=== PATIENT | female | born 2000 | race Caucasian/White ===

== ENCOUNTER 2018-12-24 14:27 | Inpatient (IN) | payer MEDICAID, OTHER ==
[2018-12-24] MEDS ORDERED: Sodium Chloride 0.9% 1,000 ML IV STA (15:22)
--- NOTE | 2018-12-24 15:25 | ED PDOC ---
Arrival/HPI - General Historian: Patient - History of Present Illness Narrative History of Present Illness (Text): 12/24/18 15:22 18 y/o female, pmh including pylonephritis, nkda, c/o dysuria and low back pain x 1.5 weeks with no fall or trauma. Dysuria with low back pain, noted to have fever yesterday, no pelvic or vaginal pain, no vaginal bleeding or discharge, no abdominal pain, no headache or night sweat, no rash, no numbness or tingling, no palpitation, no other medical or psychological complaints. <Rudolph Simpson - Last Filed: 12/24/18 19:48> <Iona Beth PA-C - Last Filed: 12/24/18 22:00> - General Chief Complaint: Back Pain Past Medical History - Provider Review Nursing Documentation Reviewed: Yes - Infectious Disease Hx of Infectious Diseases: None - Tetanus Immunization Tetanus Immunization: Up to Date - Reproductive Menopause: No - Past Medical History Past Medical History: No Previous - Cardiac Hx Cardiac Disorders: No - Neurological Hx Meningitis: Yes - Renal Hx Pyelonephritis: Yes Hx Renal Failure: No - Musculoskeletal/Rheumatological Hx Falls: No - Genitourinary/Gynecological Hx Urinary Tract Infection: Yes - Psychiatric Hx Depression: No Hx Emotional Abuse: No Hx Physical Abuse: No Hx Substance Use: No - Surgical History Hx Tonsillectomy: Yes Other/Comment: adenoid - Anesthesia Hx Anesthesia Reactions: No Hx Malignant Hyperthermia: No - Suicidal Assessment Feels Threatened In Home Enviroment: No <Rudolph Simpson - Last Filed: 12/24/18 19:48> Family/Social History - Physician Review Nursing Documentation Reviewed: Yes Family/Social History: Unknown Family HX Smoking Status: Never Smoked Hx Alcohol Use: No Hx Substance Use: No Hx Substance Use Treatment: No <Rudolph Simpson - Last Filed: 12/24/18 19:48> Allergies/Home Meds <Rudolph Simpson - Last Filed: 12/24/18 19:48> <Inoa Beth PA-C - Last Filed: 12/24/18 22:00> Allergies/Adverse Reactions: Allergies No Known Allergies Allergy (Verified 10/22/14 17:34) Home Medications: Home Meds Medication Instructions Recorded Confirmed Maureen 180 mg PO DAILY 05/21/16 05/21/16 Flonase 1 NS DAILY 05/21/16 Review of Systems - Review of Systems Constitutional: absent: Fatigue, Fevers Eyes: absent: Vision Changes ENT: absent: Hearing Changes Respiratory: absent: SOB, Cough Cardiovascular: absent: Chest Pain Gastrointestinal: absent: Abdominal Pain, Nausea, Vomiting Genitourinary Female: Dysuria Musculoskeletal: Back Pain. absent: Arthralgias Skin: absent: Rash, Pruritis Psychiatric: absent: Anxiety, Depression, Suicidal Ideation <Rudolph Simpson Q - Last Filed: 12/24/18 19:48> Physical Exam Vital Signs Reviewed: Yes Vital Signs Temp Pulse Resp BP Pulse Ox 12/24/18 15:15 100.2 F H 102 H 18 140/86 98 Temperature: Febrile Blood Pressure: Normal Pulse: Tachycardic Respiratory Rate: Normal Appearance: Positive for: Well-Appearing, Non-Toxic, Comfortable Pain Distress: Moderate Mental Status: Positive for: Alert and Oriented X 3 - Systems Exam Head: Present: Atraumatic, Normocephalic Pupils: Present: PERRL Extroacular Muscles: Present: EOMI Conjunctiva: Present: Normal Mouth: Present: Moist Mucous Membranes Neck: Present: Normal Range of Motion Respiratory/Chest: Present: Clear to Auscultation, Good Air Exchange. No: Respiratory Distress, Accessory Muscle Use Cardiovascular: Present: Regular Rate and Rhythm, Normal S1, S2. 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 ). No: Vaginal Discharge, Vaginal Bleeding, Vaginal Lesions, Adenexal Tenderness, Adenexal Mass, Cervical Motion Tendernes, Odor Back: Present: Normal Inspection, CVA Tenderness. No: Midline Tenderness, Paraspinal Tenderness, Pain with Leg Raise, Decubitus Ulcer Upper Extremity: Present: Normal Inspection. No: Cyanosis, Edema Lower Extremity: Present: Normal Inspection. No: Edema Neurological: Present: GCS=15, CN II-XII Intact, Speech Normal Skin: Present: Warm, Dry, Normal Color. No: Rashes Psychiatric: Present: Alert, Oriented x 3, Normal Insight, Normal Concentration <Rudolph Simpson Q - Last Filed: 12/24/18 19:48> Vital Signs Temp Pulse Resp BP Pulse Ox 12/24/18 18:51 90 16 125/63 98 12/24/18 17:31 97.8 F 101 H 16 124/58 L 99 12/24/18 16:16 100.2 F H 12/24/18 15:15 100.2 F H 102 H 18 140/86 98 <Iona Beth PA-C - Last Filed: 12/24/18 22:00> Medical Decision Making ED Course and Treatment: 12/24/18 15:26 -labs -CT abdomen and pelvis -Chest xray -IVF/tylenol -observe and reassess 12/24/18 18:42 -urine hcg is negative -CT abdomen and pelvis Contrast-enhancing characteristics left kidney consistent with acute pyelonephritis. Similar findings identified on the prior CT scan 05/20/2016. Enlarged right adnexa. Differential considerations provided in the commentary. Pelvic ultrasound may be beneficial if clinically indicated. -Chest xray: No active disease. -Labs show no acute findings except wbc 18.8 -Rapid flu is negative -UA show +UTI, IV rocephine ordered -Azithromycin/flagyl ordered since we holding on for the sonogram. -Sonogram ordered for her for further evaluation. -Pt. will need admission for IV antibiotics. -Case discussed with Dr. Jaskaran Alvarez, he agreed on the diagnosis/treatment and admission plan. 12/24/18 19:48 -Pt. didn't get the sonogram yet, pending sonogram result and she would need admission for IV antibiotic 12/24/18 19:51 -Discussed with the patient and she agreed to be admitted. Pt. stated that she has no pelvic/vaginal discharge or pain. -Case discussed and endorsed to the incoming VANNESA Beth to follow up the sonogram and admission for IV antibiotic. - RAD Interpretation Radiology Orders: Date of service: 12/24/2018 HISTORY: medical clearance COMPARISON: No prior. FINDINGS: LUNGS: No active pulmonary disease. PLEURA: No significant pleural effusion identified, no pneumothorax apparent. CARDIOVASCULAR: No aortic atherosclerotic calcification present. Normal cardiac size. No pulmonary vascular congestion. OSSEOUS STRUCTURES: No significant abnormalities. VISUALIZED UPPER ABDOMEN: Normal. OTHER FINDINGS: None. IMPRESSION: No active disease. CT abdomen pelvis: Date of service: 12/24/2018 PROCEDURE: CT Abdomen and Pelvis with contrast HISTORY: flank pain, UTI, pylo? Negative test (concurrent with this examination). COMPARISON: 05/20/2016. CT abdomen and pelvis. Summary of findings on the comparison examination: Findings consistent with clinically suspected pyelonephritis affecting the left kidney only. TECHNIQUE: Intravenous contrast dose: 96 cc Omnipaque 350. Radiation dose: Total exam DLP = 687.07 mGy-cm. This CT exam was performed using one or more of the following dose reduction techniques: Automated exposure control, adjustment of the mA and/or kV according to patient size, and/or use of iterative reconstruction technique. FINDINGS: LOWER THORAX: Unremarkable. LIVER: Unremarkable. No gross lesion or ductal dilatation. GALLBLADDER AND BILE DUCTS: Unremarkable. PANCREAS: Unremarkable. No gross lesion or ductal dilatation. SPLEEN: Unremarkable. ADRENALS: Unremarkable. No mass. KIDNEYS AND URETERS: Left kidney: Abnormal contrast-enhancing characteristics particularly in the upper pole and to lesser extent lower pole consistent with clinically suspected pyelonephritis. Right kidney and ureter: Unremarkable. No hydronephrosis. No solid mass. VASCULATURE: Unremarkable. No aortic aneurysm. No atherosclerotic calcification or mural plaque present. BOWEL: Unremarkable. No obstruction. No gross mural thickening. APPENDIX: Normal appendix. PERITONEUM: Trace free fluid identified in the pelvis/cul de sac. No free air. LYMPH NODES: Unremarkable. No enlarged lymph nodes. BLADDER: Unremarkable. REPRODUCTIVE: Enlarged right adnexa measuring 3.7 x 6 cm. The findings likely represent cysts in the left ovary. Less likely considerations would include right hydrosalpinx. Deformed cyst with enhancement of the wall on the right likely recently ruptured cyst. Simple cyst left hemipelvis 2.4 x 3.2 cm likely adnexal cysts. BONES: No acute fracture. OTHER FINDINGS: None. IMPRESSION: Contrast-enhancing characteristics left kidney consistent with acute pyelonephritis. Similar findings identified on the prior CT scan 05/20/2016. Enlarged right adnexa. Differential considerations provided in the commentary. Pelvic ultrasound may be beneficial if clinically indicated. Transvaginal sonogram Softball Umpire: Radiologist <Rudolph Simpson - Last Filed: 12/24/18 19:48> ED Course and Treatment: 12/24/18 20:00 Case endorsed to me by VANNESA Simpson pending US. Lab and CT results reviewed. 12/24/18 21:30 US TV : R ovarian septated cyst. Otherwise negative. Kar Saini MD 12/24/18 21:21 On reevaluation, patient reports improvement of symptoms, states that pain is controlled at this time. On exam, patient remains awake alert and oriented 3 in no acute distress. Diagnostic results and diagnosis d/w the patient. Based on history, exam and diagnostic results plan will be for observation for pyelonephritis. Case d/w medical support assistant and with Dr. Mcgowan, agrees to observation under the hospitalist service. Patient states she fully agrees with and understands further plan of care and disposition. I have given the patient opportunity to ask any additional questions. Taryn Beth PA-C - Lab Interpretations Lab Results: Total Bilirubin 0.6 mg/dL (0.2-1.3) 12/24/18 16:40 AST 16 U/L (14-36) 12/24/18 16:40 ALT 20 U/L (7-56) 12/24/18 16:40 Alkaline Phosphatase 71 U/L (38-126) 12/24/18 16:40 Total Protein 7.1 g/dL (5.8-8.3) 12/24/18 16:40 Albumin 4.1 g/dL (3.0-4.8) 12/24/18 16:40 Globulin 3.1 gm/dL 12/24/18 16:40 Albumin/Globulin Ratio 1.3 (1.1-1.8) 12/24/18 16:40 Urine Color Dark yellow (YELLOW) 12/24/18 15:55 Urine Appearance Slight-cloudy (CLEAR) 12/24/18 15:55 Urine pH 6.0 (4.7-8.0) 12/24/18 15:55 Ur Specific [place] >= 1.030 (1.005-1.035) 12/24/18 15:55 Urine Protein 30 mg/dL (<30 mg/dL) H 12/24/18 15:55 Urine Glucose (UA) Negative mg/dL (NEGATIVE) 12/24/18 15:55 Urine Ketones Negative mg/dL (NEGATIVE) 12/24/18 15:55 Urine Blood Large (NEGATIVE) H 12/24/18 15:55 Urine Nitrate Positive (NEGATIVE) H 12/24/18 15:55 Urine Bilirubin Negative (NEGATIVE) 12/24/18 15:55 Urine Urobilinogen 0.2 E.U./dL (<1 E.U./dL) 12/24/18 15:55 Ur Leukocyte Esterase Trace Ryan/uL (NEGATIVE) H 12/24/18 15:55 Urine RBC Tntc /hpf (0-2) H 12/24/18 15:55 Urine WBC 2 - 5 /hpf (0-6) 12/24/18 15:55 Ur Epithelial Cells 3 - 4 /hpf (0-5) 12/24/18 15:55 Urine Bacteria Large /hpf (NONE) 12/24/18 15:55 - RAD Interpretation Radiology Orders: 12/24/18 15:25 CHEST PORTABLE [RAD] Stat 12/24/18 15:39 ABDOMEN & PELVIS [ABD & PELVIS IV CONTRAST ONLY] [CT] Stat 12/24/18 18:32 TRANSVAGINAL [US] Stat - Medication Orders Current Medication Orders: Discontinued Medications Acetaminophen (Tylenol 325mg Tab) 650 mg PO STAT STA Stop: 12/24/18 15:40 Last Admin: 12/24/18 16:16 Dose: 650 mg MAR Pain/Vitals Document 12/24/18 16:16 KV (Rec: 12/24/18 16:17 KV [id number]) Pain Reassessment Is This A Pain ReAssessment? No Vitals Temperature (97.6 F-99.6 F) 100.2 F Temperature Source Oral Azithromycin (Zithromax) 1,000 mg PO STAT STA; Protocol Stop: 12/24/18 19:12 Last Admin: 12/24/18 19:43 Dose: 1,000 mg Sodium Chloride (Sodium Chloride 0.9%) 1,000 mls @ 999 mls/hr IV .Q1H1M STA Stop: 12/24/18 16:22 Last Admin: 12/24/18 16:18 Dose: 999 mls/hr eMAR Start Stop Document 12/24/18 16:18 KV (Rec: 12/24/18 16:18 KV [id number]) Intravenous Solution Start Date 12/24/18 Start Time 16:18 Ceftriaxone Sodium (Rocephin 1 Gram Ivpb) 1 gm in 100 mls @ 200 mls/hr IVPB STAT STA; Protocol Stop: 12/24/18 17:52 Last Admin: 12/24/18 17:45 Dose: 200 mls/hr eMAR Start Stop Document 12/24/18 17:45 KV (Rec: 12/24/18 17:47 KV [id number]) Intravenous Solution Start Date 12/24/18 Start Time 17:47 Ketorolac Tromethamine (Toradol) 30 mg IVP STAT STA Stop: 12/24/18 15:41 Last Admin: 12/24/18 16:19 Dose: 30 mg MAR Pain Assessment Document 12/24/18 16:19 KV (Rec: 12/24/18 16:19 KV [id number]) Pain Reassessment Is this a pain reassessment? No IVP Administration Document 12/24/18 16:19 KV (Rec: 12/24/18 16:19 KV [id number]) Charges for Administration # of IVP Administrations 1 Metronidazole (Flagyl) 500 mg PO STAT STA; Protocol Stop: 12/24/18 19:12 Last Admin: 12/24/18 19:45 Dose: 500 mg <Iona Beth PA-C - Last Filed: 12/24/18 22:00> - PA / AUDIO PRODUCTION MANAGER / Resident Statement CANDELARIA has reviewed & agrees with the documentation as recorded. <Rudolph Simpson - Last Filed: 12/24/18 19:48> - PA / AUDIO PRODUCTION MANAGER / Resident Statement CANDELARIA has reviewed & agrees with the documentation as recorded. <Iona eBth PA-C - Last Filed: 12/24/18 22:00> Disposition/Present on Arrival - Present on Arrival Any Indicators Present on Arrival: No History of DVT/PE: No History of Uncontrolled Diabetes: No Urinary Catheter: No History of Decub. Ulcer: No History Surgical Site Infection Following: None - Disposition Have Diagnosis and Disposition been Completed?: Yes Disposition Time: 19:51 Patient Plan: Admission <Rudolph Simpson - Last Filed: 12/24/18 19:48> <Iona Beth PA-C - Last Filed: 12/24/18 22:00> - Disposition Diagnosis: Pyelonephritis, Leukocytosis Disposition: HOSPITALIZED Patient Problems: Current Active Problems Problem Status Onset Pyelonephritis Acute Leukocytosis Acute Condition: GUARDED Forms: [facility] (Tajik)
[2018-12-24 16:31] LABS: URINE BILIRUBIN NEGATIVE (NEGATIVE); URINE BLOOD LARGE (NEGATIVE); URINE GLUCOSE (UA) NEGATIVE (NEGATIVE); URINE LEUKOCYTE ESTERASE TRACE Leu/uL (NEGATIVE); URINE PROTEIN 30 mg/dL (<30 mg/dL); URINE UROBILINOGEN 0.2 E.U./dL (<1 E.U./dL)
[2018-12-24 16:35] LABS: URINE APPEARANCE SLIGHT-CLOUDY (CLEAR); URINE COLOR DARK YELLOW (YELLOW)
[2018-12-24 16:38] LABS: URINE BACTERIA LARGE /hpf; URINE RBC TNTC /hpf (0-2)
[2018-12-24 16:49] LABS: BASO # 0.03 K/mm3 (0.0-2.0); BASO % 0.2 % (0.0-3.0); EOS # 0.1 (0.0-0.7); EOS % 0.3 % (1.5-5.0); LYMPH # 2.9 (1.2-3.4); LYMPH % 15.3 % (22.0-35.0); MEAN CELL VOLUME 84.4 fl (80.0-105.0); MEAN CORPUSCULAR HGB CONC 34.4 g/dl (31.0-37.0); MEAN PLATELET VOLUME 10.3 fl (7.0-11.0); MONO # 1.8 (0.1-0.6); MONO % 9.7 % (1.0-6.0); RBC 4.48 10^6/uL (3.5-6.1); RED CELL DISTRIBUTION WIDTH 13.6 % (11.5-14.5); WHITE BLOOD COUNT 18.8 10^3/uL (4.5-11.0)
--- NOTE | 2018-12-24 16:55 | RAD ---
Date of service: 12/24/2018 HISTORY: medical clearance COMPARISON: No prior. FINDINGS: LUNGS: No active pulmonary disease. PLEURA: No significant pleural effusion identified, no pneumothorax apparent. CARDIOVASCULAR: No aortic atherosclerotic calcification present. Normal cardiac size. No pulmonary vascular congestion. OSSEOUS STRUCTURES: No significant abnormalities. VISUALIZED UPPER ABDOMEN: Normal. OTHER FINDINGS: None. IMPRESSION: No active disease.
[2018-12-24 17:00] LABS: ALB/GLOB RATIO 1.3 (1.1-1.8); ALBUMIN 4.1 g/dL (3.0-4.8); ALT/SGPT 20 U/L (7-56); AST/SGOT 16 U/L (14-36); BLOOD UREA NITROGEN 10 mg/dL (7-21); CALCIUM 9.1 mg/dL (8.4-10.5); GFR NON-AFRICAN AMERICAN > 60
[2018-12-24] MEDS ORDERED: cefTRIAXone 1 gm 1 GM/100 ML BAG IVPB STA (17:23)
[2018-12-24] MEDS ORDERED: Iohexol 350 MG/100 ML VIAL ONE (17:38)
--- NOTE | 2018-12-24 18:33 | CT ---
Date of service: 12/24/2018 PROCEDURE: CT Abdomen and Pelvis with contrast HISTORY: flank pain, UTI, pylo? Negative test (concurrent with this examination). COMPARISON: 05/20/2016. CT abdomen and pelvis. Summary of findings on the comparison examination: Findings consistent with clinically suspected pyelonephritis affecting the left kidney only. TECHNIQUE: Intravenous contrast dose: 96 cc Omnipaque 350. Radiation dose: Total exam DLP = 687.07 mGy-cm. This CT exam was performed using one or more of the following dose reduction techniques: Automated exposure control, adjustment of the mA and/or kV according to patient size, and/or use of iterative reconstruction technique. FINDINGS: LOWER THORAX: Unremarkable. LIVER: Unremarkable. No gross lesion or ductal dilatation. GALLBLADDER AND BILE DUCTS: Unremarkable. PANCREAS: Unremarkable. No gross lesion or ductal dilatation. SPLEEN: Unremarkable. ADRENALS: Unremarkable. No mass. KIDNEYS AND URETERS: Left kidney: Abnormal contrast-enhancing characteristics particularly in the upper pole and to lesser extent lower pole consistent with clinically suspected pyelonephritis. Right kidney and ureter: Unremarkable. No hydronephrosis. No solid mass. VASCULATURE: Unremarkable. No aortic aneurysm. No atherosclerotic calcification or mural plaque present. BOWEL: Unremarkable. No obstruction. No gross mural thickening. APPENDIX: Normal appendix. PERITONEUM: Trace free fluid identified in the pelvis/cul de sac. No free air. LYMPH NODES: Unremarkable. No enlarged lymph nodes. BLADDER: Unremarkable. REPRODUCTIVE: Enlarged right adnexa measuring 3.7 x 6 cm. The findings likely represent cysts in the left ovary. Less likely considerations would include right hydrosalpinx. Deformed cyst with enhancement of the wall on the right likely recently ruptured cyst. Simple cyst left hemipelvis 2.4 x 3.2 cm likely adnexal cysts. BONES: No acute fracture. OTHER FINDINGS: None. IMPRESSION: Contrast-enhancing characteristics left kidney consistent with acute pyelonephritis. Similar findings identified on the prior CT scan 05/20/2016. Enlarged right adnexa. Differential considerations provided in the commentary. Pelvic ultrasound may be beneficial if clinically indicated.
[2018-12-25] MEDS: Sodium Chloride 0.9% 1,000 ML IV SCH ×3 (01:41→17:29)
--- NOTE | 2018-12-25 02:10 | CP.PCM.HP ---
<Pam Simpson - Last Filed: 12/25/18 02:47> History of Present Illness - History of Present Illness History of Present Illness: Resident History & Physical for Hospitalist Service Patient is a 18 year old female with past medical history of pyelonephritis and meningitis presenting with chief complaint of back pain, chills, and fatigue which began yesterday. Patient states one week prior, she started experiencing burning with urination in addition to noting her urine was cloudy and malodorous. Her current symptoms are similar to when she was previously admitted for pyelonephritis in 2016. Patient admits to using marijuana yesterday as over the counter analgesics did not provide relief. She also admits to headache, nausea, and diffuse abdominal discomfort. Denies vomiting, chest pain, shortness of breath, diarrhea. PMH: pyelonephritis, meningitis PSH: none SHx: denies alcohol or tobacco use, admits to occasional marijuana FHx: T2DM, thyroid cancer (mother). afib (grandmother) Allergies: NKDA PMD: [facility] Present on Admission - Present on Admission Any Indicators Present on Admission: No Review of Systems - Review of Systems All systems: reviewed and no additional remarkable complaints except (as stated in HPI) Past Patient History - Infectious Disease Hx of Infectious Diseases: None - Tetanus Immunizations Tetanus Immunization: Up to Date - Past Medical History & Family History Past Family History: Reviewed and not pertinent - Past Social History Smoking Status: Never Smoked Drugs: Cannabis - CARDIAC Hx Cardiac Disorders: No - NEUROLOGICAL Hx Meningitis: Yes - RENAL Hx Pyelonephritis: Yes Hx Renal Failure: No - MUSCULOSKELETAL/RHEUMATOLOGICAL Hx Falls: No - GENITOURINARY/GYNECOLOGICAL Hx Urinary Tract Infection: Yes - PSYCHIATRIC Hx Depression: No Hx Emotional Abuse: No Hx Physical Abuse: No Hx Substance Use: No - SURGICAL HISTORY Hx Tonsillectomy: Yes Other/Comment: adenoid - ANESTHESIA Hx Anesthesia Reactions: No Hx Malignant Hyperthermia: No Meds Allergies/Adverse Reactions: Allergies Allergy/AdvReac Type Severity Reaction Status Date / Time ORANGE Allergy Mild RASH Verified 12/25/18 08:50 Physical Exam - Constitutional Appears: Non-toxic, No Acute Distress - Head Exam Head Exam: ATRAUMATIC, NORMOCEPHALIC - Eye Exam Eye Exam: EOMI, Normal appearance, PERRL - ENT Exam ENT Exam: Mucous Membranes Moist - Neck Exam Neck exam: Positive for: Full Rom. Negative for: Lymphadenopathy - Respiratory Exam Respiratory Exam: Clear to Auscultation Bilateral, NORMAL BREATHING PATTERN. absent: Accessory Muscle Use, Rales, Rhonchi, Wheezes, Respiratory Distress - Cardiovascular Exam Cardiovascular Exam: REGULAR RHYTHM, +S1, +S2. absent: Tachycardia, Systolic Murmur - GI/Abdominal Exam GI & Abdominal Exam: Soft. absent: Distended, Firm, Guarding, Rebound, Rigid, Tenderness - Extremities Exam Extremities exam: Positive for: normal capillary refill, pedal pulses present. Negative for: pedal edema, tenderness - Back Exam Back exam: CVA tenderness (L), CVA tenderness (R) - Neurological Exam Neurological exam: Alert, CN II-XII Intact, Oriented x3 - Psychiatric Exam Psychiatric exam: Normal Affect, Normal Mood - Skin Skin Exam: Dry, Intact, Normal Color, Warm Results - Vital Signs Recent Vital Signs: Last Vital Signs Temp 98.6 F 12/24/18 22:00 Pulse 89 12/25/18 01:00 Resp 18 12/25/18 01:00 BP 121/60 12/24/18 22:00 Pulse Ox 98 12/25/18 01:00 - Labs Result Diagrams: 12/24/18 16:40 12/24/18 16:40 Labs: Laboratory Results - last 24 hr 12/24/18 12/24/18 12/24/18 15:55 16:19 16:40 WBC RBC Hgb Hct MCV MCH MCHC RDW Plt Count MPV Neut % (Auto) Lymph % (Auto) [place] % (Auto) Eos % (Auto) Baso % (Auto) Lymph # (Auto) [place] # (Auto) Eos # (Auto) Baso # (Auto) Absolute Neuts (auto) Sodium 138 Potassium 3.6 Chloride 106 Carbon Dioxide 23 Anion Gap 13 BUN 10 Creatinine 0.6 L Est GFR ( Amer) > 60 Est GFR (Non-Af Amer) > 60 Random Glucose 94 Calcium 9.1 Total Bilirubin 0.6 AST 16 ALT 20 Alkaline Phosphatase 71 Total Protein 7.1 Albumin 4.1 Globulin 3.1 Albumin/Globulin Ratio 1.3 Urine Color Dark yellow Urine Appearance Slight-cloudy Urine pH 6.0 Ur Specific [place] >= 1.030 Urine Protein 30 H Urine Glucose (UA) Negative Urine Ketones Negative Urine Blood Large H Urine Nitrate Positive H Urine Bilirubin Negative Urine Urobilinogen 0.2 Ur Leukocyte Esterase Trace H Urine RBC Tntc H Urine WBC 2 - 5 Ur Epithelial Cells 3 - 4 Urine Bacteria Large Influenza Typ A,B (EIA) Negative for flu a/b 12/24/18 16:40 WBC 18.8 H RBC 4.48 Hgb 13.0 Hct 37.8 MCV 84.4 MCH 29.0 MCHC 34.4 RDW 13.6 Plt Count 262 MPV 10.3 Neut % (Auto) 74.5 H Lymph % (Auto) 15.3 L [place] % (Auto) 9.7 H Eos % (Auto) 0.3 L Baso % (Auto) 0.2 Lymph # (Auto) 2.9 [place] # (Auto) 1.8 H Eos # (Auto) 0.1 Baso # (Auto) 0.03 Absolute Neuts (auto) 14.02 H Sodium Potassium Chloride Carbon Dioxide Anion Gap BUN Creatinine Est GFR ( Amer) Est GFR (Non-Af Amer) Random Glucose Calcium Total Bilirubin AST ALT Alkaline Phosphatase Total Protein Albumin Globulin Albumin/Globulin Ratio Urine Color Urine Appearance Urine pH Ur Specific [place] Urine Protein Urine Glucose (UA) Urine Ketones Urine Blood Urine Nitrate Urine Bilirubin Urine Urobilinogen Ur Leukocyte Esterase Urine RBC Urine WBC Ur Epithelial Cells Urine Bacteria Influenza Typ A,B (EIA) Assessment & Plan - Assessment and Plan (Free Text) Assessment: Patient is a 18 year old female with past medical history of pyelonephritis and meningitis presenting with chief complaint of back pain, chills, and fatigue and admitted for management of pyelonephritis. Plan: Pyelonephritis - low grade fever, positive leukocytosis - CT abd/pelvis shows left kidney pyelonephritis - UA positive for nitrates, leukocyte esterase, large bacteria, blood - Tylenol PRN for fever - Zofran 4 mg IV Q6H PRN - NS @ 150 ccs/hr - Rocephin 1 gm IV daily - followup blood and urine cultures Enlarged right adnexa - noted on CT abd/pelvis - Transvaginal ultrasound shows right ovarian septated cyst PPX - SCDs, Pepcid Case discussed with Dr. Juan M Simpson PGY-1 <Cristina Mcgowan - Last Filed: 12/25/18 19:26> Results - Vital Signs Recent Vital Signs: Last Vital Signs Temp 98.8 F 12/25/18 14:00 Pulse 81 12/25/18 14:00 Resp 18 12/25/18 14:00 BP 115/71 12/25/18 14:00 Pulse Ox 99 12/25/18 14:00 - Labs Result Diagrams: 12/25/18 02:40 12/25/18 02:40 Labs: Laboratory Results - last 24 hr 12/25/18 12/25/18 02:40 02:40 WBC 13.7 H D RBC 4.09 Hgb 11.7 L Hct 34.2 L MCV 83.6 MCH 28.6 MCHC 34.2 RDW 13.7 Plt Count 251 MPV 10.3 Neut % (Auto) 80.0 H Lymph % (Auto) 9.5 L [place] % (Auto) 9.8 H Eos % (Auto) 0.6 L Baso % (Auto) 0.1 Lymph # (Auto) 1.3 [place] # (Auto) 1.3 H Eos # (Auto) 0.1 Baso # (Auto) 0.01 Absolute Neuts (auto) 10.98 H Sodium 138 Potassium 3.2 L Chloride 107 Carbon Dioxide 25 Anion Gap 9 L BUN 10 Creatinine 0.6 L Est GFR ( Amer) > 60 Est GFR (Non-Af Amer) > 60 Random Glucose 99 Calcium 8.4 Attending/Attestation - Attestation I have personally seen and examined this patient.: Yes I have fully participated in the care of the patient.: Yes I have reviewed all pertinent clinical information: Yes Notes (Text): 12/25/18 19:26 seen and examined. A&P formulated with resident.
[2018-12-25 03:14] LABS: BASO # 0.01 K/mm3 (0.0-2.0); BASO % 0.1 % (0.0-3.0); EOS # 0.1 (0.0-0.7); EOS % 0.6 % (1.5-5.0); HEMOGLOBIN 11.7 g/dL (12.0-16.0); LYMPH # 1.3 (1.2-3.4); LYMPH % 9.5 % (22.0-35.0); MEAN CELL VOLUME 83.6 fl (80.0-105.0); MEAN CORPUSCULAR HEMOGLOBIN 28.6 pg (25.0-35.0); MEAN CORPUSCULAR HGB CONC 34.2 g/dl (31.0-37.0); MEAN PLATELET VOLUME 10.3 fl (7.0-11.0); MONO # 1.3 (0.1-0.6); MONO % 9.8 % (1.0-6.0); RBC 4.09 10^6/uL (3.5-6.1); RED CELL DISTRIBUTION WIDTH 13.7 % (11.5-14.5); WHITE BLOOD COUNT 13.7 10^3/uL (4.5-11.0)
[2018-12-25 03:19] LABS: BLOOD UREA NITROGEN 10 mg/dL (7-21); CALCIUM 8.4 mg/dL (8.4-10.5); GFR NON-AFRICAN AMERICAN > 60
[2018-12-25 04:44] VITALS: BMI 27.4
[2018-12-25] MEDS ORDERED: Influenza Vaccine 60 mcg/0.5 mL SYR (4YR UP) IM ONE (04:44)
[2018-12-25] MEDS ORDERED: Pneumococcal 23-Valent Vaccine IM ONE (04:44)
[2018-12-25] MEDS ORDERED: Potassium Chloride 20 mEq ER Tab PO STA (07:33)
[2018-12-25 08:55] VITALS: RESP 18
[2018-12-25] MEDS: cefTRIAXone 1 gm 1 GM/100 ML BAG IVPB SCH (10:04)
--- NOTE | 2018-12-25 11:06 | US ---
Date of service: 12/24/2018 HISTORY: rt. hyposalpinx? COMPARISON: None available. TECHNIQUE: Transvaginal ultrasound FINDINGS: UTERUS: Measures 6.29 x 3.3 x 3.63 cm cm. Normal in size and appearance. No fibroid or other mass lesion seen. ENDOMETRIUM: Measures 6.8 mm in diameter. Unremarkable. CERVIX: No cervical abnormality identified. RIGHT OVARY: Measures 5.01 x 2.71 x 4.81 cm. No solid mass. Normal flow. There is a septated cyst measuring 2.88 x 2.1 x 2.85 cm LEFT OVARY: Measures 3.5 x 2.38 x 2.26 cm. No solid mass. Normal flow. FREE FLUID: Small amount of free fluid OTHER FINDINGS: The report concurs with the preliminary [facility] report IMPRESSION: Right ovary.There is a septated cyst measuring 2.88 x 2.1 x 2.85 cm
[2018-12-26 07:36] LABS: BASO # 0.01 K/mm3 (0.0-2.0); BASO % 0.1 % (0.0-3.0); EOS # 0.1 (0.0-0.7); EOS % 1.4 % (1.5-5.0); HEMOGLOBIN 11.9 g/dL (12.0-16.0); LYMPH # 1.7 (1.2-3.4); LYMPH % 23.4 % (22.0-35.0); MEAN CELL VOLUME 83.5 fl (80.0-105.0); MEAN CORPUSCULAR HEMOGLOBIN 28.4 pg (25.0-35.0); MEAN PLATELET VOLUME 10.4 fl (7.0-11.0); MONO # 0.7 (0.1-0.6); RBC 4.19 10^6/uL (3.5-6.1); RED CELL DISTRIBUTION WIDTH 13.9 % (11.5-14.5); WHITE BLOOD COUNT 7.2 10^3/uL (4.5-11.0)
[2018-12-26 08:03] LABS: BLOOD UREA NITROGEN 5 mg/dL (7-21); CALCIUM 8.5 mg/dL (8.4-10.5); GFR NON-AFRICAN AMERICAN > 60
[2018-12-26] MEDS: Sodium Chloride 0.9% 1,000 ML IV SCH (09:45)
[2018-12-26] MEDS: cefTRIAXone 1 gm 1 GM/100 ML BAG IVPB SCH (09:47)
[2018-12-26 15:14] VITALS: BP 123/81; PULSE 64; TEMP 98.7; O2SAT 100
--- NOTE | 2018-12-26 15:25 | CP.PCM.DIS ---
<Vinicio Morton - Last Filed: 12/26/18 15:20> Provider - Provider Date of Admission: 12/25/18 10:15 Attending physician: Hardy Ly MD Time Spent in preparation of Discharge (in minutes): 45 Diagnosis - Discharge Diagnosis (1) Pyelonephritis Status: Acute Priority: Medium (2) Urinary tract infection Status: Acute Priority: Medium (3) History of meningitis Status: Resolved Priority: Low Hospital Course - Lab Results Lab Results: Micro Results 12/24/18 16:30 Urine,Clean Catch Urine Culture - Final Escherichia Coli 12/25/18 02:55 Blood-Venous Blood Culture - Preliminary NO GROWTH AFTER 24 HOURS 12/25/18 02:40 Blood-Venous Blood Culture - Preliminary NO GROWTH AFTER 24 HOURS Most Recent Lab Values WBC 7.2 10^3/uL (4.5-11.0) D 12/26/18 07:00 RBC 4.19 10^6/uL (3.5-6.1) 12/26/18 07:00 Hgb 11.9 g/dL (12.0-16.0) L 12/26/18 07:00 Hct 35.0 % (36.0-48.0) L 12/26/18 07:00 MCV 83.5 fl (80.0-105.0) 12/26/18 07:00 MCH 28.4 pg (25.0-35.0) 12/26/18 07:00 MCHC 34.0 g/dl (31.0-37.0) 12/26/18 07:00 RDW 13.9 % (11.5-14.5) 12/26/18 07:00 Plt Count 234 10^3/uL (120.0-450.0) 12/26/18 07:00 MPV 10.4 fl (7.0-11.0) 12/26/18 07:00 Neut % (Auto) 65.1 % (50.0-68.0) 12/26/18 07:00 Lymph % (Auto) 23.4 % (22.0-35.0) 12/26/18 07:00 Gove % (Auto) 10.0 % (1.0-6.0) H 12/26/18 07:00 Eos % (Auto) 1.4 % (1.5-5.0) L 12/26/18 07:00 Baso % (Auto) 0.1 % (0.0-3.0) 12/26/18 07:00 Lymph # (Auto) 1.7 (1.2-3.4) 12/26/18 07:00 Gove # (Auto) 0.7 (0.1-0.6) H 12/26/18 07:00 Eos # (Auto) 0.1 (0.0-0.7) 12/26/18 07:00 Baso # (Auto) 0.01 K/mm3 (0.0-2.0) 12/26/18 07:00 Absolute Neuts (auto) 4.70 (1.4-6.5) 12/26/18 07:00 Sodium 139 mmol/L (132-148) 12/26/18 07:00 Potassium 3.6 mmol/L (3.6-5.0) 12/26/18 07:00 Chloride 109 mmol/L (98-107) H 12/26/18 07:00 Carbon Dioxide 23 mmol/L (21-33) 12/26/18 07:00 Anion Gap 11 (10-20) 12/26/18 07:00 BUN 5 mg/dL (7-21) L 12/26/18 07:00 Creatinine 0.6 mg/dl (0.7-1.2) L 12/26/18 07:00 Est GFR ( Amer) > 60 12/26/18 07:00 Est GFR (Non-Af Amer) > 60 12/26/18 07:00 Random Glucose 82 mg/dL (70-110) 12/26/18 07:00 Calcium 8.5 mg/dL (8.4-10.5) 12/26/18 07:00 Total Bilirubin 0.6 mg/dL (0.2-1.3) 12/24/18 16:40 AST 16 U/L (14-36) 12/24/18 16:40 ALT 20 U/L (7-56) 12/24/18 16:40 Alkaline Phosphatase 71 U/L (38-126) 12/24/18 16:40 Total Protein 7.1 g/dL (5.8-8.3) 12/24/18 16:40 Albumin 4.1 g/dL (3.0-4.8) 12/24/18 16:40 Globulin 3.1 gm/dL 12/24/18 16:40 Albumin/Globulin Ratio 1.3 (1.1-1.8) 12/24/18 16:40 Urine Color Dark yellow (YELLOW) 12/24/18 15:55 Urine Appearance Slight-cloudy (CLEAR) 12/24/18 15:55 Urine pH 6.0 (4.7-8.0) 12/24/18 15:55 Ur Specific [place] >= 1.030 (1.005-1.035) 12/24/18 15:55 Urine Protein 30 mg/dL (<30 mg/dL) H 12/24/18 15:55 Urine Glucose (UA) Negative mg/dL (NEGATIVE) 12/24/18 15:55 Urine Ketones Negative mg/dL (NEGATIVE) 12/24/18 15:55 Urine Blood Large (NEGATIVE) H 12/24/18 15:55 Urine Nitrate Positive (NEGATIVE) H 12/24/18 15:55 Urine Bilirubin Negative (NEGATIVE) 12/24/18 15:55 Urine Urobilinogen 0.2 E.U./dL (<1 E.U./dL) 12/24/18 15:55 Ur Leukocyte Esterase Trace Ryan/uL (NEGATIVE) H 12/24/18 15:55 Urine RBC Tntc /hpf (0-2) H 12/24/18 15:55 Urine WBC 2 - 5 /hpf (0-6) 12/24/18 15:55 Ur Epithelial Cells 3 - 4 /hpf (0-5) 12/24/18 15:55 Urine Bacteria Large /hpf (NONE) 12/24/18 15:55 Influenza Typ A,B (EIA) Negative for flu a/b (NEGATIVE) 12/24/18 16:19 - Hospital Course Hospital Course: Patient is a 18 year old female with past medical history of pyelonephritis and meningitis who was admitted for evaluation and treatment of back pain, chills, and fatigue. With the use of physical examinations, lab work, and imaging the carmen de jesus was diagnosed with and treated for a urinary tract infection complicated by pyelonephritis. During their hospital stay the patient underwent a CT Abdomen and Pelvis with contrast and transvaginal ultrasound which were reviewed, appreciated, and utilized in the management of the patients clinical course. The CT of abdomen and pelvis showed characteristics of left kidney consistent with acute pyelonephritis and enlarged right adnexa. Transvaginal ultrasound showed a right ovarian septated cyst measuring 2.88 x 2.1 x 2.85 cm. Patient was treated with rocephin 1 gram IV daily amongst other empiric/therapeutic medications. At this time the patient is medically stable for discharge. Patient understands and appreciates discharge plan. Patient instructed to follow up with primary care physicians and referrals within three to five days from discharge. Furthermore, the patient is instructed to take medications as prescribed and to return to emergency room for evaluation of new or worsening symptoms including but limited to intractable headache, fever, chills, dizziness, chest pain, shortness of breath, abdominal pain, nausea, vomiting, diarrhea, constipation, and urinary symptoms. Discharge Exam - Additional Findings Additional findings: - Constitutional Appears: Non-toxic, No Acute Distress - Head Exam Head Exam: ATRAUMATIC, NORMOCEPHALIC - Eye Exam Eye Exam: EOMI, Normal appearance, PERRL - ENT Exam ENT Exam: Mucous Membranes Moist - Neck Exam Neck exam: Positive for: Full Rom. Negative for: Lymphadenopathy - Respiratory Exam Respiratory Exam: Clear to Auscultation Bilateral, NORMAL BREATHING PATTERN. absent: Accessory Muscle Use, Rales, Rhonchi, Wheezes, Respiratory Distress - Cardiovascular Exam Cardiovascular Exam: REGULAR RHYTHM, +S1, +S2. absent: Tachycardia, Systolic Murmur - GI/Abdominal Exam GI & Abdominal Exam: Soft. absent: Distended, Firm, Guarding, Rebound, Rigid, Tenderness - Extremities Exam Extremities exam: Positive for: normal capillary refill, pedal pulses present. Negative for: pedal edema, tenderness - Back Exam Back exam: no CVA tenderness (L), no CVA tenderness (R) - Neurological Exam Neurological exam: Alert, CN II-XII Intact, Oriented x3 - Psychiatric Exam Psychiatric exam: Normal Affect, Normal Mood - Skin Skin Exam: Dry, Intact, Normal Color, Warm Discharge Plan - Discharge Medications Prescriptions: Ciprofloxacin [Cipro] 500 mg PO BID 10 Days tab - Follow Up Plan Condition: GUARDED Disposition: HOME/ ROUTINE Instructions: Quitting Smoking, Flu Vaccine, Kidney Infection (DC), Urinary Tract Infection in Women (DC) Additional Instructions: Patient Instructions: 1. Take medications as prescribed. You are started on ciprofloxacin 500mg PO BID. Please continue for 10 days. No heavy lifting while taking this medication. 2. Follow up with primary care physician within three to five days from discharge. 3. Please return to the emergency room for evaluation of new or worsening symptoms including but not limited to intractable headache, fever, chills, dizziness, chest pain, shortness of breath, abdominal pain, nausea, vomiting, diarrhea, constipation, and urinary symptoms. <Hardy Ly - Last Filed: 12/26/18 17:23> Provider - Provider Date of Admission: 12/25/18 10:15 Attending physician: Hardy Ly MD Hospital Course - Lab Results Lab Results: Micro Results 12/24/18 16:30 Urine,Clean Catch Urine Culture - Final Escherichia Coli 12/25/18 02:55 Blood-Venous Blood Culture - Preliminary NO GROWTH AFTER 24 HOURS 12/25/18 02:40 Blood-Venous Blood Culture - Preliminary NO GROWTH AFTER 24 HOURS Most Recent Lab Values WBC 7.2 10^3/uL (4.5-11.0) D 12/26/18 07:00 RBC 4.19 10^6/uL (3.5-6.1) 12/26/18 07:00 Hgb 11.9 g/dL (12.0-16.0) L 12/26/18 07:00 Hct 35.0 % (36.0-48.0) L 12/26/18 07:00 MCV 83.5 fl (80.0-105.0) 12/26/18 07:00 MCH 28.4 pg (25.0-35.0) 12/26/18 07:00 MCHC 34.0 g/dl (31.0-37.0) 12/26/18 07:00 RDW 13.9 % (11.5-14.5) 12/26/18 07:00 Plt Count 234 10^3/uL (120.0-450.0) 12/26/18 07:00 MPV 10.4 fl (7.0-11.0) 12/26/18 07:00 Neut % (Auto) 65.1 % (50.0-68.0) 12/26/18 07:00 Lymph % (Auto) 23.4 % (22.0-35.0) 12/26/18 07:00 Gove % (Auto) 10.0 % (1.0-6.0) H 12/26/18 07:00 Eos % (Auto) 1.4 % (1.5-5.0) L 12/26/18 07:00 Baso % (Auto) 0.1 % (0.0-3.0) 12/26/18 07:00 Lymph # (Auto) 1.7 (1.2-3.4) 12/26/18 07:00 Gove # (Auto) 0.7 (0.1-0.6) H 12/26/18 07:00 Eos # (Auto) 0.1 (0.0-0.7) 12/26/18 07:00 Baso # (Auto) 0.01 K/mm3 (0.0-2.0) 12/26/18 07:00 Absolute Neuts (auto) 4.70 (1.4-6.5) 12/26/18 07:00 Sodium 139 mmol/L (132-148) 12/26/18 07:00 Potassium 3.6 mmol/L (3.6-5.0) 12/26/18 07:00 Chloride 109 mmol/L (98-107) H 12/26/18 07:00 Carbon Dioxide 23 mmol/L (21-33) 12/26/18 07:00 Anion Gap 11 (10-20) 12/26/18 07:00 BUN 5 mg/dL (7-21) L 12/26/18 07:00 Creatinine 0.6 mg/dl (0.7-1.2) L 12/26/18 07:00 Est GFR ( Amer) > 60 12/26/18 07:00 Est GFR (Non-Af Amer) > 60 12/26/18 07:00 Random Glucose 82 mg/dL (70-110) 12/26/18 07:00 Calcium 8.5 mg/dL (8.4-10.5) 12/26/18 07:00 Total Bilirubin 0.6 mg/dL (0.2-1.3) 12/24/18 16:40 AST 16 U/L (14-36) 12/24/18 16:40 ALT 20 U/L (7-56) 12/24/18 16:40 Alkaline Phosphatase 71 U/L (38-126) 12/24/18 16:40 Total Protein 7.1 g/dL (5.8-8.3) 12/24/18 16:40 Albumin 4.1 g/dL (3.0-4.8) 12/24/18 16:40 Globulin 3.1 gm/dL 12/24/18 16:40 Albumin/Globulin Ratio 1.3 (1.1-1.8) 12/24/18 16:40 Urine Color Dark yellow (YELLOW) 12/24/18 15:55 Urine Appearance Slight-cloudy (CLEAR) 12/24/18 15:55 Urine pH 6.0 (4.7-8.0) 12/24/18 15:55 Ur Specific [place] >= 1.030 (1.005-1.035) 12/24/18 15:55 Urine Protein 30 mg/dL (<30 mg/dL) H 12/24/18 15:55 Urine Glucose (UA) Negative mg/dL (NEGATIVE) 12/24/18 15:55 Urine Ketones Negative mg/dL (NEGATIVE) 12/24/18 15:55 Urine Blood Large (NEGATIVE) H 12/24/18 15:55 Urine Nitrate Positive (NEGATIVE) H 12/24/18 15:55 Urine Bilirubin Negative (NEGATIVE) 12/24/18 15:55 Urine Urobilinogen 0.2 E.U./dL (<1 E.U./dL) 12/24/18 15:55 Ur Leukocyte Esterase Trace Ryan/uL (NEGATIVE) H 12/24/18 15:55 Urine RBC Tntc /hpf (0-2) H 12/24/18 15:55 Urine WBC 2 - 5 /hpf (0-6) 12/24/18 15:55 Ur Epithelial Cells 3 - 4 /hpf (0-5) 12/24/18 15:55 Urine Bacteria Large /hpf (NONE) 12/24/18 15:55 Influenza Typ A,B (EIA) Negative for flu a/b (NEGATIVE) 12/24/18 16:19 Attending/Attestation - Attestation I have personally seen and examined this patient.: Yes I have fully participated in the care of the patient.: Yes I have reviewed all pertinent clinical information, including history, physical exam and plan: Yes Notes (Text): 12/26/18 17:19 Attending note; Patient seen and examined with resident. Patient's girlfriend by the bedside. Patient is a 18 year old female with past medical history of pyelonephritis and meningitis presenting with chief complaint of back pain, chills, and fatigue which began yesterday. 1. acute left Pyelonephritis/ flank pain; CT of abdomen and pelvis showed characteristics of left kidney consistent with acute pyelonephritis and enlarged right adnexa. Transvaginal ultrasound showed a right ovarian septated cyst measuring 2.88 x 2.1 x 2.85 cm. Patient was treated with rocephin 1 gram IV daily amongst other empiric/therapeutic medications. Leukocytosis is resolved. Patient is afebrile nontoxic. Denies any urinary symptoms Tolerating diet well. Ambulating fine. Urine culture is positive for E. coli sensitive to ciprofloxacin. Patient will be discharged home with ciprofloxacin to complete 14 days. Advised to follow-up with PMD at [facility].
== END 2018-12-26 17:31 | disposition home or self-care (01) | DRG 463 ==
LOC: ED 14:27 → ERH 21:57 → 5RSO 12-25 01:04 → OBSVTOIN 12-25 10:15
PROVIDERS: ADMIT Internal Medicine; ATTEND Internal Medicine
DX: N10 Acute pyelonephritis (principal); B96.20 Unspecified Escherichia coli [E. coli] as the cause of diseases classified elsewhere; F12.90 Cannabis use, unspecified, uncomplicated; N39.0 Urinary tract infection, site not specified; N83.291 Other ovarian cyst, right side; Z86.61 Personal history of infections of the central nervous system; Z80.8 Family history of malignant neoplasm of other organs or systems; Z82.49 Family history of ischemic heart disease and other diseases of the circulatory system; Z83.3 Family history of diabetes mellitus

== ENCOUNTER 2018-12-27 19:06 | Inpatient (IN) | payer MEDICAID, OTHER ==
[2018-12-27 19:07] VITALS: BMI 27.4
[2018-12-27] MEDS ORDERED: Sodium Chloride 0.9% 1,000 ML IV STA ×2 (20:47→23:14)
[2018-12-27] MEDS ORDERED: cefTRIAXone 1 gm 1 GM/100 ML BAG IVPB STA (21:04)
[2018-12-27 21:54] LABS: VENOUS BLOOD GAS BASE EXCESS 1.7 mmol/L (0.0-2.0); VENOUS BLOOD GAS PO2 27 mm/Hg (30-55); VENOUS BLOOD PH 7.44 (7.32-7.43)
[2018-12-27 22:05] LABS: BASO # 0.02 K/mm3 (0.0-2.0); BASO % 0.3 % (0.0-3.0); EOS % 0.1 % (1.5-5.0); HEMOGLOBIN 13.4 g/dL (12.0-16.0); LYMPH % 14.9 % (22.0-35.0); MEAN CELL VOLUME 81.9 fl (80.0-105.0); MEAN CORPUSCULAR HEMOGLOBIN 28.6 pg (25.0-35.0); MEAN CORPUSCULAR HGB CONC 34.9 g/dl (31.0-37.0); MEAN PLATELET VOLUME 9.9 fl (7.0-11.0); MONO % 14.6 % (1.0-6.0); RBC 4.69 10^6/uL (3.5-6.1); RED CELL DISTRIBUTION WIDTH 13.6 % (11.5-14.5); WHITE BLOOD COUNT 6.9 10^3/uL (4.5-11.0)
[2018-12-27 22:36] LABS: ALB/GLOB RATIO 1.3 (1.1-1.8); ALBUMIN 4.3 g/dL (3.0-4.8); ALT/SGPT 21 U/L (7-56); AST/SGOT 30 U/L (14-36); BLOOD UREA NITROGEN 6 mg/dL (7-21); CALCIUM 9.4 mg/dL (8.4-10.5); GFR NON-AFRICAN AMERICAN > 60
[2018-12-27 23:07] LABS: URINE BILIRUBIN NEGATIVE (NEGATIVE); URINE BLOOD LARGE (NEGATIVE); URINE GLUCOSE (UA) NEGATIVE (NEGATIVE); URINE LEUKOCYTE ESTERASE TRACE Leu/uL (NEGATIVE); URINE PROTEIN 30 mg/dL (<30 mg/dL); URINE UROBILINOGEN 0.2 E.U./dL (<1 E.U./dL)
--- NOTE | 2018-12-27 23:08 | ED PDOC ---
Arrival/HPI <PemaCarson - Last Filed: 12/28/18 00:24> - General Historian: Patient, Family - History of Present Illness Narrative History of Present Illness (Text): 12/27/18 23:05 18-year-old female presents today with back pain nausea vomiting and fever. So dan was seen in the hospital 2 days ago and was discharged yesterday for pyelonephritis. Patient states she took the first dose of her antibiotics today at home but since then has been unable to take the medication. Patient states she has been vomiting multiple times today. Patient is complaining of high fevers and severe back pain. Complaining of nausea. No chest pain or shortness of breath. Denies urinary frequency or dysuria. Patient denies chest pain or shortness of breath. Patient states she does have a dry cough. Patient states she was tested for the flu and was negative. No other complaints <Sigrid Fernandez - Last Filed: 12/28/18 01:02> - General Chief Complaint: Fever Time Seen by Provider: 12/27/18 19:25 Past Medical History - Provider Review Nursing Documentation Reviewed: Yes - Travel History Have you recently traveled outside [place] w/in the past 3 mons?: No - Infectious Disease Hx of Infectious Diseases: None - Tetanus Immunization Tetanus Immunization: Up to Date - Past Medical History Past Medical History: No Previous - Cardiac Hx Cardiac Disorders: No - Pulmonary Hx Respiratory Disorders: No - Neurological Hx Neurological Disorder: Yes Hx Meningitis: Yes (at age 1) - HEENT Hx Deafness: Yes (Mild hearing loss in R ear) - Renal Hx Pyelonephritis: Yes Hx Renal Failure: No Other/Comment: Blood in urine - Endocrine/Metabolic Hx Endocrine Disorders: No - Hematological/Oncological Hx Blood Disorders: No - Integumentary Hx Eczema: Yes - Musculoskeletal/Rheumatological Hx Musculoskeletal Disorders: No - Gastrointestinal Hx Gastrointestinal Disorders: No - Genitourinary/Gynecological Hx Urinary Tract Infection: Yes (recurrent) - Psychiatric Hx Psychophysiologic Disorder: Yes Hx Depression: No Hx Emotional Abuse: No Hx Physical Abuse: No Hx Substance Use: Yes (cannibus social) - Surgical History Hx Tonsillectomy: Yes Other/Comment: adenoidrctomy; tonsillectomy. Ear tubes - Anesthesia Hx Anesthesia: Yes Hx Anesthesia Reactions: No Hx Malignant Hyperthermia: No - Suicidal Assessment Feels Threatened In Home Enviroment: No <Azoia,Sigrid T - Last Filed: 12/28/18 01:02> Family/Social History - Physician Review Nursing Documentation Reviewed: Yes Family/Social History: Unknown Family HX Smoking Status: Never Smoked Hx Alcohol Use: Yes (social) Hx Substance Use: Yes (cannibus social) Hx Substance Use Treatment: No <FidencioMadi hawthorneina Lisa - Last Filed: 12/28/18 01:02> Allergies/Home Meds <PemaCarson - Last Filed: 12/28/18 00:24> <JimSigrid Gonzalez - Last Filed: 12/28/18 01:02> Allergies/Adverse Reactions: Allergies ORANGE Allergy (Mild, Verified 12/27/18 20:16) RASH Review of Systems - Review of Systems Constitutional: Fatigue, Fevers ENT: absent: Sore Throat Respiratory: Cough. absent: SOB Cardiovascular: absent: Chest Pain, Palpitations Gastrointestinal: Abdominal Pain, Nausea, Vomiting. absent: Constipation, Diarrhea Genitourinary Female: absent: Dysuria, Frequency, Hematuria Musculoskeletal: Back Pain. absent: Arthralgias, Neck Pain Skin: absent: Rash, Pruritis Neurological: absent: Headache, Dizziness Psychiatric: absent: Anxiety, Depression <Sigrid Fernandez - Last Filed: 12/28/18 01:02> Physical Exam Vital Signs Temp Pulse Resp BP Pulse Ox 12/27/18 23:29 98.2 F 84 19 127/56 L 99 12/27/18 21:50 102.6 F H 12/27/18 20:22 102.6 F H 110 H 18 138/90 99 <PemaCarson - Last Filed: 12/28/18 00:24> Vital Signs Reviewed: Yes Vital Signs Temp Pulse Resp BP Pulse Ox 12/27/18 21:50 102.6 F H 12/27/18 20:22 102.6 F H 110 H 18 138/90 99 Temperature: Febrile Blood Pressure: Normal Pulse: Tachycardic Respiratory Rate: Normal Appearance: Positive for: Well-Appearing, Non-Toxic, Uncomfortable Pain Distress: None Mental Status: Positive for: Alert and Oriented X 3 - Systems Exam Head: Present: Atraumatic Mouth: Present: Moist Mucous Membranes Neck: Present: Normal Range of Motion Respiratory/Chest: Present: Clear to Auscultation, Good Air Exchange. No: Respiratory Distress, Accessory Muscle Use Cardiovascular: Present: Regular Rate and Rhythm, Normal S1, S2. No: Murmurs Abdomen: No: Tenderness, Distention, Peritoneal Signs, Rebound, Guarding Back: Present: Normal Inspection, CVA Tenderness (bilateral). No: Midline Tenderness, Paraspinal Tenderness Upper Extremity: Present: Normal Inspection Lower Extremity: Present: Normal Inspection Neurological: Present: GCS=15, Speech Normal Skin: Present: Warm, Dry, Normal Color Psychiatric: Present: Alert, Oriented x 3 <Azoia,Sigrid T - Last Filed: 12/28/18 01:02> Medical Decision Making - Lab Interpretations Lab Results: pO2 27 mm/Hg (30-55) L 12/27/18 21:41 VBG pH 7.44 (7.32-7.43) H 12/27/18 21:41 VBG pCO2 38.0 (40-60) L 12/27/18 21:41 VBG HCO3 25.8 mmol/l (21-28) 12/27/18 21:41 VBG Total CO2 27.0 mmol.L (22-28) 12/27/18 21:41 VBG O2 Sat (Calc) 61.1 % (40-65) 12/27/18 21:41 VBG Base Excess 1.7 mmol/L (0.0-2.0) 12/27/18 21:41 VBG Potassium 3.3 mmol/L (3.6-5.2) L 12/27/18 21:41 Sodium 136.0 mmol/L (132-148) 12/27/18 21:41 Chloride 102.0 mmol/L (98-107) 12/27/18 21:41 Glucose 90 mg/dl (65-105) 12/27/18 21:41 Lactate 1.3 mmol/L (0.7-2.1) 12/27/18 21:41 FiO2 21.0 % 12/27/18 21:41 Total Bilirubin 0.3 mg/dL (0.2-1.3) 12/27/18 21:33 AST 30 U/L (14-36) 12/27/18 21:33 ALT 21 U/L (7-56) 12/27/18 21:33 Alkaline Phosphatase 95 U/L (38-126) 12/27/18 21:33 Total Protein 7.6 g/dL (5.8-8.3) 12/27/18 21:33 Albumin 4.3 g/dL (3.0-4.8) 12/27/18 21:33 Globulin 3.4 gm/dL 12/27/18 21:33 Albumin/Globulin Ratio 1.3 (1.1-1.8) 12/27/18 21:33 Urine Color Yellow (YELLOW) 12/27/18 22:46 Urine Appearance Sl cloudy (CLEAR) 12/27/18 22:46 Urine pH 6.0 (4.7-8.0) 12/27/18 22:46 Ur Specific [place] >= 1.030 (1.005-1.035) 12/27/18 22:46 Urine Protein 30 mg/dL (<30 mg/dL) H 12/27/18 22:46 Urine Glucose (UA) Negative mg/dL (NEGATIVE) 12/27/18 22:46 Urine Ketones 40 mg/dL (NEGATIVE) H 12/27/18 22:46 Urine Blood Large (NEGATIVE) H 12/27/18 22:46 Urine Nitrate Negative (NEGATIVE) 12/27/18 22:46 Urine Bilirubin Negative (NEGATIVE) 12/27/18 22:46 Urine Urobilinogen 0.2 E.U./dL (<1 E.U./dL) 12/27/18 22:46 Ur Leukocyte Esterase Trace Ryan/uL (NEGATIVE) H 12/27/18 22:46 Urine RBC 10 - 15 /hpf (0-2) H 12/27/18 22:46 Urine WBC 2 - 5 /hpf (0-6) 12/27/18 22:46 Ur Epithelial Cells 1 - 3 /hpf (0-5) 12/27/18 22:46 Urine Bacteria Few /hpf (NONE) 12/27/18 22:46 - RAD Interpretation Radiology Orders: 12/27/18 22:41 CHEST PORTABLE [RAD] Stat - Medication Orders Current Medication Orders: Acetaminophen (Tylenol 325mg Tab) 650 mg PO Q4H PRN PRN Reason: Fever >100.4 F Sodium Chloride (Sodium Chloride 0.9%) 1,000 mls @ 150 mls/hr IV .Q6H40M HUSSEIN Meropenem/Sodium Chloride (Merrem Iv 500 Mg/Ns 50 Ml) 500 mg in 50 mls @ 100 mls/hr IVPB Q8 HUSSEIN; Protocol Stop: 12/28/18 14:29 Ondansetron HCl (Zofran Inj) 4 mg IVP Q4H PRN PRN Reason: Nausea/Vomiting Pantoprazole Sodium (Protonix Ec Tab) 40 mg PO 0600 HUSSEIN Discontinued Medications Acetaminophen (Tylenol 325mg Tab) 975 mg PO STAT STA Stop: 12/27/18 20:48 Last Admin: 12/27/18 21:50 Dose: 975 mg MAR Pain/Vitals Document 12/27/18 21:50 EB (Rec: 12/27/18 22:[address] [facility]) Vitals Temperature (97.6 F-99.6 F) 102.6 F Sodium Chloride (Sodium Chloride 0.9%) 1,000 mls @ 999 mls/hr IV .Q1H1M STA Stop: 12/27/18 21:47 Last Admin: 12/27/18 21:50 Dose: 999 mls/hr eMAR Start Stop Document 12/27/18 21:50 EB (Rec: 12/27/18 22:[address] [facility]) Intravenous Solution Start Date 12/27/18 Start Time 21:50 Ceftriaxone Sodium (Rocephin 1 Gram Ivpb) 1 gm in 100 mls @ 200 mls/hr IVPB STAT STA; Protocol Stop: 12/27/18 21:33 Last Admin: 12/27/18 21:50 Dose: 200 mls/hr eMAR Start Stop Document 12/27/18 21:50 EB (Rec: 12/27/18 22:[address] [facility]) Intravenous Solution Start Date 12/27/18 Start Time 21:50 Sodium Chloride (Sodium Chloride 0.9%) 1,000 mls @ 999 mls/hr IV .Q1H1M STA Stop: 12/28/18 00:14 Last Admin: 12/27/18 23:34 Dose: 999 mls/hr eMAR Start Stop Document 12/27/18 23:34 EB (Rec: 12/27/18 23:34 EB [id number]) Intravenous Solution Start Date 12/27/18 Start Time 23:34 Ketorolac Tromethamine (Toradol) 30 mg IVP STAT STA Stop: 12/27/18 21:05 Last Admin: 12/27/18 21:50 Dose: 30 mg MAR Pain Assessment Document 12/27/18 21:50 EB (Rec: 12/27/18 22:[address] [facility]) Pain Reassessment Is this a pain reassessment? No IVP Administration Document 12/27/18 21:50 EB (Rec: 12/27/18 22:[address] [facility]) Charges for Administration # of IVP Administrations 1 <Carson Mcadams - Last Filed: 12/28/18 00:24> ED Course and Treatment: 12/27/18 23:07 18-year-old female with fever abdominal pain nausea vomiting and back pain history of pyelonephritis 2 days ago discharged from the hospital yesterday. CBC within normal limits CMP within normal limits Rapid flu negative UA + leukocytes, + wbcs Chest x-ray: No infiltrate or effusion no cardiomegaly Patient was given ToradolZofran and fluids. Patient reassessment: Patient feeling slightly better after medications Case discussed in depth with Dr. Mcgowan accepts the admission for pyelonephritis fever and back pain impression; pyelonephritis, fever, back pain, vomiting admit med/surg Reassessment Condition: Re-examined, Improved - Lab Interpretations Lab Results: pO2 27 mm/Hg (30-55) L 12/27/18 21:41 VBG pH 7.44 (7.32-7.43) H 12/27/18 21:41 VBG pCO2 38.0 (40-60) L 12/27/18 21:41 VBG HCO3 25.8 mmol/l (21-28) 12/27/18 21:41 VBG Total CO2 27.0 mmol.L (22-28) 12/27/18 21:41 VBG O2 Sat (Calc) 61.1 % (40-65) 12/27/18 21:41 VBG Base Excess 1.7 mmol/L (0.0-2.0) 12/27/18 21:41 VBG Potassium 3.3 mmol/L (3.6-5.2) L 12/27/18 21:41 Sodium 136.0 mmol/L (132-148) 12/27/18 21:41 Chloride 102.0 mmol/L (98-107) 12/27/18 21:41 Glucose 90 mg/dl (65-105) 12/27/18 21:41 Lactate 1.3 mmol/L (0.7-2.1) 12/27/18 21:41 FiO2 21.0 % 12/27/18 21:41 Total Bilirubin 0.3 mg/dL (0.2-1.3) 12/27/18 21:33 AST 30 U/L (14-36) 12/27/18 21:33 ALT 21 U/L (7-56) 12/27/18 21:33 Alkaline Phosphatase 95 U/L (38-126) 12/27/18 21:33 Total Protein 7.6 g/dL (5.8-8.3) 12/27/18 21:33 Albumin 4.3 g/dL (3.0-4.8) 12/27/18 21:33 Globulin 3.4 gm/dL 12/27/18 21:33 Albumin/Globulin Ratio 1.3 (1.1-1.8) 12/27/18 21:33 - RAD Interpretation Radiology Orders: 12/27/18 22:41 CHEST PORTABLE [RAD] Stat - Medication Orders Current Medication Orders: Discontinued Medications Acetaminophen (Tylenol 325mg Tab) 975 mg PO STAT STA Stop: 12/27/18 20:48 Last Admin: 12/27/18 21:50 Dose: 975 mg MAR Pain/Vitals Document 12/27/18 21:50 EB (Rec: 12/27/18 22:[address] [facility]) Vitals Temperature (97.6 F-99.6 F) 102.6 F Sodium Chloride (Sodium Chloride 0.9%) 1,000 mls @ 999 mls/hr IV .Q1H1M STA Stop: 12/27/18 21:47 Last Admin: 12/27/18 21:50 Dose: 999 mls/hr eMAR Start Stop Document 12/27/18 21:50 EB (Rec: 12/27/18 22:[address] [facility]) Intravenous Solution Start Date 12/27/18 Start Time 21:50 Ceftriaxone Sodium (Rocephin 1 Gram Ivpb) 1 gm in 100 mls @ 200 mls/hr IVPB STAT STA; Protocol Stop: 12/27/18 21:33 Last Admin: 12/27/18 21:50 Dose: 200 mls/hr eMAR Start Stop Document 12/27/18 21:50 EB (Rec: 12/27/18 22:21 [facility]) Intravenous Solution Start Date 12/27/18 Start Time 21:50 Ketorolac Tromethamine (Toradol) 30 mg IVP STAT STA Stop: 12/27/18 21:05 Last Admin: 12/27/18 21:50 Dose: 30 mg MAR Pain Assessment Document 12/27/18 21:50 EB (Rec: 12/27/18 22:22 [facility]) Pain Reassessment Is this a pain reassessment? No IVP Administration Document 12/27/18 21:50 EB (Rec: 12/27/18 22:22 [facility]) Charges for Administration # of IVP Administrations 1 <Sigrid Fernandez - Last Filed: 12/28/18 01:02> - PA / MAINTENANCE AND REPAIR WORKER / Resident Statement CANDELARIA has reviewed & agrees with the documentation as recorded. CANDELARIA has examined the patient and agrees with the treatment plan. <Carson Mcadams - Last Filed: 12/28/18 00:24> Disposition/Present on Arrival <Carson Mcadams - Last Filed: 12/28/18 00:24> - Present on Arrival Any Indicators Present on Arrival: No History of DVT/PE: No History of Uncontrolled Diabetes: No Urinary Catheter: No History of Decub. Ulcer: No History Surgical Site Infection Following: None - Disposition Have Diagnosis and Disposition been Completed?: Yes Disposition Time: 22:45 Patient Plan: Admission <Sigrid Fernandez - Last Filed: 12/28/18 01:02> - Disposition Diagnosis: Pyelonephritis, Fever, Back pain, Vomiting Disposition: HOSPITALIZED Patient Problems: Current Active Problems Problem Status Onset Back pain Acute Fever Acute Pyelonephritis Acute Vomiting Acute Condition: FAIR
[2018-12-27 23:11] LABS: URINE APPEARANCE SL CLOUDY (CLEAR); URINE COLOR YELLOW (YELLOW)
[2018-12-27 23:30] LABS: URINE BACTERIA FEW /hpf
--- NOTE | 2018-12-28 01:33 | CP.PCM.HP ---
<Deangelo Allen - Last Filed: 12/28/18 01:27> History of Present Illness - History of Present Illness History of Present Illness: Deangelo Allen, PGY1 H&P for Dr. Juan M edmondson: "vomiting episode and subjective fever" Patient is a 18 year old female with past medical history of pyelonephritis and meningitis (as a child) who presented for vomiting episode and subjective fever after a recent discharge from the hospital for pyelonephritis on 12/26. Prior to her discharge, she had burning with urination and noted her urine to be cloudy and malodorous. In the ED, Vitals: Temp 102.6, HR 110, BP 138/90, RR 18, SaO2 99% (room air). Medical team evaluated patient in ED. Patient says that she was recently discharged on ciprofloxacin and was compliant with her meds. She took it for two days. However, she had a new episode of vomiting after eating rice and afterwards she had a fever. Currently she denies shortness of breath, nausea, vomiting, diarrhea, abdominal pain, lightheadedness, dizziness. She has lower back pain bilaterally however this was present on her previous hospital admission. A full 12 point ROS was conducted and unremarkable except as stated above. PMD: [facility] PMH: pyelonephritis, meningitis PSH: none SHx: denies alcohol or tobacco use, admits to occasional marijuana use FHx: T2DM, thyroid cancer (mother). afib (grandmother) Allergies: NKDA Present on Admission - Present on Admission Any Indicators Present on Admission: No Review of Systems - Review of Systems All systems: reviewed and no additional remarkable complaints except (as per HPI.) Past Patient History - Infectious Disease Hx of Infectious Diseases: None - Tetanus Immunizations Tetanus Immunization: Up to Date - Past Social History Smoking Status: Never Smoked - CARDIAC Hx Cardiac Disorders: No - PULMONARY Hx Respiratory Disorders: No - NEUROLOGICAL Hx Neurological Disorder: Yes Hx Meningitis: Yes (at age 1) - HEENT Hx Deafness: Yes (Mild hearing loss in R ear) - RENAL Hx Pyelonephritis: Yes Hx Renal Failure: No Other/Comment: Blood in urine - ENDOCRINE/METABOLIC Hx Endocrine Disorders: No - HEMATOLOGICAL/ONCOLOGICAL Hx Blood Disorders: No - INTEGUMENTARY Hx Eczema: Yes - MUSCULOSKELETAL/RHEUMATOLOGICAL Hx Musculoskeletal Disorders: No - GASTROINTESTINAL Hx Gastrointestinal Disorders: No - GENITOURINARY/GYNECOLOGICAL Hx Urinary Tract Infection: Yes (recurrent) - PSYCHIATRIC Hx Psychophysiologic Disorder: Yes Hx Depression: No Hx Emotional Abuse: No Hx Physical Abuse: No Hx Substance Use: Yes (cannibus social) - SURGICAL HISTORY Hx Tonsillectomy: Yes Other/Comment: adenoidrctomy; tonsillectomy. Ear tubes - ANESTHESIA Hx Anesthesia: Yes Hx Anesthesia Reactions: No Hx Malignant Hyperthermia: No Meds Allergies/Adverse Reactions: Allergies Allergy/AdvReac Type Severity Reaction Status Date / Time ORANGE Allergy Mild RASH Verified 12/27/18 20:16 Physical Exam - Constitutional Appears: No Acute Distress - Head Exam Head Exam: ATRAUMATIC, NORMAL INSPECTION, NORMOCEPHALIC - Eye Exam Eye Exam: EOMI, Normal appearance - ENT Exam ENT Exam: Mucous Membranes Moist - Respiratory Exam Respiratory Exam: Clear to Auscultation Bilateral, NORMAL BREATHING PATTERN. absent: Rales, Rhonchi, Wheezes - Cardiovascular Exam Cardiovascular Exam: REGULAR RHYTHM, +S1, +S2, Systolic Murmur - GI/Abdominal Exam GI & Abdominal Exam: Normal Bowel Sounds, Soft. absent: Tenderness - Extremities Exam Extremities exam: Positive for: normal capillary refill, normal inspection, pedal pulses present. Negative for: calf tenderness - Back Exam Back exam: CVA tenderness (L), CVA tenderness (R) - Neurological Exam Neurological exam: Alert, CN II-XII Intact, Normal Gait, Oriented x3, Reflexes Normal - Psychiatric Exam Psychiatric exam: Normal Affect, Normal Mood - Skin Skin Exam: Dry, Intact, Normal Color, Warm Results - Vital Signs Recent Vital Signs: Last Vital Signs Temp 98.2 F 12/28/18 00:36 Pulse 84 12/28/18 00:36 Resp 19 12/28/18 00:36 BP 127/56 L 12/28/18 00:36 Pulse Ox 99 12/28/18 00:36 - Labs Result Diagrams: 12/27/18 21:33 12/27/18 21:33 Labs: Laboratory Results - last 24 hr 12/27/18 12/27/18 12/27/18 21:33 21:33 21:41 WBC 6.9 RBC 4.69 Hgb 13.4 Hct 38.4 MCV 81.9 MCH 28.6 MCHC 34.9 RDW 13.6 Plt Count 293 MPV 9.9 Neut % (Auto) 70.1 H Lymph % (Auto) 14.9 L [place] % (Auto) 14.6 H Eos % (Auto) 0.1 L Baso % (Auto) 0.3 Lymph # (Auto) 1.0 L [place] # (Auto) 1.0 H Eos # (Auto) 0.0 Baso # (Auto) 0.02 Absolute Neuts (auto) 4.84 pO2 27 L VBG pH 7.44 H VBG pCO2 38.0 L VBG HCO3 25.8 VBG Total CO2 27.0 VBG O2 Sat (Calc) 61.1 VBG Base Excess 1.7 VBG Potassium 3.3 L Glucose 90 Lactate 1.3 FiO2 21.0 Sodium 139 136.0 Potassium 3.4 L Chloride 102 102.0 Carbon Dioxide 26 Anion Gap 15 BUN 6 L Creatinine 0.6 L Est GFR ( Amer) > 60 Est GFR (Non-Af Amer) > 60 Random Glucose 84 Calcium 9.4 Total Bilirubin 0.3 AST 30 ALT 21 Alkaline Phosphatase 95 Total Protein 7.6 Albumin 4.3 Globulin 3.4 Albumin/Globulin Ratio 1.3 Venous Blood Potassium 3.3 L Urine Color Urine Appearance Urine pH Ur Specific [place] Urine Protein Urine Glucose (UA) Urine Ketones Urine Blood Urine Nitrate Urine Bilirubin Urine Urobilinogen Ur Leukocyte Esterase Urine RBC Urine WBC Ur Epithelial Cells Urine Bacteria Influenza Typ A,B (EIA) 12/27/18 12/27/18 22:02 22:46 WBC RBC Hgb Hct MCV MCH MCHC RDW Plt Count MPV Neut % (Auto) Lymph % (Auto) [place] % (Auto) Eos % (Auto) Baso % (Auto) Lymph # (Auto) [place] # (Auto) Eos # (Auto) Baso # (Auto) Absolute Neuts (auto) pO2 VBG pH VBG pCO2 VBG HCO3 VBG Total CO2 VBG O2 Sat (Calc) VBG Base Excess VBG Potassium Glucose Lactate FiO2 Sodium Potassium Chloride Carbon Dioxide Anion Gap BUN Creatinine Est GFR ( Amer) Est GFR (Non-Af Amer) Random Glucose Calcium Total Bilirubin AST ALT Alkaline Phosphatase Total Protein Albumin Globulin Albumin/Globulin Ratio Venous Blood Potassium Urine Color Yellow Urine Appearance Sl cloudy Urine pH 6.0 Ur Specific [place] >= 1.030 Urine Protein 30 H Urine Glucose (UA) Negative Urine Ketones 40 H Urine Blood Large H Urine Nitrate Negative Urine Bilirubin Negative Urine Urobilinogen 0.2 Ur Leukocyte Esterase Trace H Urine RBC 10 - 15 H Urine WBC 2 - 5 Ur Epithelial Cells 1 - 3 Urine Bacteria Few Influenza Typ A,B (EIA) Negative for flu a/b Assessment & Plan - Assessment and Plan (Free Text) Assessment: Patient is a 18 year old female with past medical history of pyelonephritis and meningitis (as a child) who presented for vomiting episode and subjective fever after a recent discharge from the hospital for pyelonephritis on 12/26. Patient will be admitted for pyelonephritis - failed outpatient antibiotic therapy. Plan: Pyelonephritis - Failed outpatient antibiotic therapy with PO ciprofloxacin - started on IV merrem 500mg IVPB q8 - Given ceftriaxone in ED - ID on consult - tylenol 650mg PO q4 prn for fevers - IVF NS bolus - NS @ 150cc/hr for maintenance fluids - zofran prn for nausea/vomiting - blood, urine, sputum cx - UA +blood, trace LE, 2-5 wbc, cloudy - flu negative - CXR: no consolidation or infiltrate - CT A/P (12/24): left acute pyelonephritis (previous discharge) - Urine Drug Screen Possible Heart Murmur - echo to evaluate for murmur GI ppx: ptx DVT ppx: scd Diet: HHD Dispo: monitor patient on the floor. Case was discussed and reviewed with attending physician, Dr. Mcgowan <Cristina Mcgowan - Last Filed: 12/28/18 05:06> Results - Vital Signs Recent Vital Signs: Last Vital Signs Temp 99.1 F 12/28/18 03:41 Pulse 84 12/28/18 00:36 Resp 19 12/28/18 00:36 BP 127/56 L 12/28/18 00:36 Pulse Ox 99 12/28/18 00:36 - Labs Result Diagrams: 12/27/18 21:33 12/27/18 21:33 Labs: Laboratory Results - last 24 hr 12/27/18 12/27/18 12/27/18 21:33 21:33 21:41 WBC 6.9 RBC 4.69 Hgb 13.4 Hct 38.4 MCV 81.9 MCH 28.6 MCHC 34.9 RDW 13.6 Plt Count 293 MPV 9.9 Neut % (Auto) 70.1 H Lymph % (Auto) 14.9 L [place] % (Auto) 14.6 H Eos % (Auto) 0.1 L Baso % (Auto) 0.3 Lymph # (Auto) 1.0 L [place] # (Auto) 1.0 H Eos # (Auto) 0.0 Baso # (Auto) 0.02 Absolute Neuts (auto) 4.84 pO2 27 L VBG pH 7.44 H VBG pCO2 38.0 L VBG HCO3 25.8 VBG Total CO2 27.0 VBG O2 Sat (Calc) 61.1 VBG Base Excess 1.7 VBG Potassium 3.3 L Glucose 90 Lactate 1.3 FiO2 21.0 Sodium 139 136.0 Potassium 3.4 L Chloride 102 102.0 Carbon Dioxide 26 Anion Gap 15 BUN 6 L Creatinine 0.6 L Est GFR ( Amer) > 60 Est GFR (Non-Af Amer) > 60 Random Glucose 84 Calcium 9.4 Total Bilirubin 0.3 AST 30 ALT 21 Alkaline Phosphatase 95 Total Protein 7.6 Albumin 4.3 Globulin 3.4 Albumin/Globulin Ratio 1.3 Venous Blood Potassium 3.3 L Urine Color Urine Appearance Urine pH Ur Specific [place] Urine Protein Urine Glucose (UA) Urine Ketones Urine Blood Urine Nitrate Urine Bilirubin Urine Urobilinogen Ur Leukocyte Esterase Urine RBC Urine WBC Ur Epithelial Cells Urine Bacteria Influenza Typ A,B (EIA) 12/27/18 12/27/18 22:02 22:46 WBC RBC Hgb Hct MCV MCH MCHC RDW Plt Count MPV Neut % (Auto) Lymph % (Auto) [place] % (Auto) Eos % (Auto) Baso % (Auto) Lymph # (Auto) [place] # (Auto) Eos # (Auto) Baso # (Auto) Absolute Neuts (auto) pO2 VBG pH VBG pCO2 VBG HCO3 VBG Total CO2 VBG O2 Sat (Calc) VBG Base Excess VBG Potassium Glucose Lactate FiO2 Sodium Potassium Chloride Carbon Dioxide Anion Gap BUN Creatinine Est GFR ( Amer) Est GFR (Non-Af Amer) Random Glucose Calcium Total Bilirubin AST ALT Alkaline Phosphatase Total Protein Albumin Globulin Albumin/Globulin Ratio Venous Blood Potassium Urine Color Yellow Urine Appearance Sl cloudy Urine pH 6.0 Ur Specific [place] >= 1.030 Urine Protein 30 H Urine Glucose (UA) Negative Urine Ketones 40 H Urine Blood Large H Urine Nitrate Negative Urine Bilirubin Negative Urine Urobilinogen 0.2 Ur Leukocyte Esterase Trace H Urine RBC 10 - 15 H Urine WBC 2 - 5 Ur Epithelial Cells 1 - 3 Urine Bacteria Few Influenza Typ A,B (EIA) Negative for flu a/b Attending/Attestation - Attestation I have personally seen and examined this patient.: Yes I have fully participated in the care of the patient.: Yes I have reviewed all pertinent clinical information: Yes Notes (Text): 12/28/18 05:03 Readmitted for fever, cough, N&V and generalized pain. Discharged yesterday. DX with acute pyelonephritis. Unable to take PO Cipro prescribed. Exam significant for B/L CVA tenderness and holosystolic murmur. Will change ABX to Merrem. Gave 2 L bolus NS for fever. Seen and examined. Discussed with resident.
[2018-12-28] MEDS: Pantoprazole 40 mg EC Tab PO SCH (05:14)
[2018-12-28] MEDS ORDERED: MEROPENEM 500 MG in NS 500 MG/50 ML BAG IVPB SCH (06:00)
[2018-12-28 07:50] LABS: HEMOGLOBIN 12.5 g/dL (12.0-16.0); MEAN CELL VOLUME 81.9 fl (80.0-105.0); MEAN CORPUSCULAR HEMOGLOBIN 28.2 pg (25.0-35.0); MEAN CORPUSCULAR HGB CONC 34.4 g/dl (31.0-37.0); MEAN PLATELET VOLUME 9.8 fl (7.0-11.0); RBC 4.43 10^6/uL (3.5-6.1); RED CELL DISTRIBUTION WIDTH 13.5 % (11.5-14.5)
[2018-12-28 08:45] LABS: BLOOD UREA NITROGEN 6 mg/dL (7-21); CALCIUM 8.4 mg/dL (8.4-10.5); GFR NON-AFRICAN AMERICAN > 60
[2018-12-28] MEDS ORDERED: Potassium Chloride 20 mEq ER Tab PO STA (09:02)
--- NOTE | 2018-12-28 09:37 | RAD ---
Date of service: 12/27/2018 HISTORY: fever COMPARISON: No prior. FINDINGS: LUNGS: No active pulmonary disease. PLEURA: No significant pleural effusion identified, no pneumothorax apparent. CARDIOVASCULAR: No aortic atherosclerotic calcification present. Normal cardiac size. No pulmonary vascular congestion. OSSEOUS STRUCTURES: No significant abnormalities. VISUALIZED UPPER ABDOMEN: Normal. OTHER FINDINGS: None. IMPRESSION: No active disease.
[2018-12-28] MEDS ORDERED: Sodium Chloride 0.9% 1,000 ML IV SCH ×2 (10:00→14:32)
--- NOTE | 2018-12-28 11:55 | CARD ---
APPROVED REPORT Date of service: 12/28/2018 EXAM: Two-dimensional and M-mode echocardiogram with Doppler and color Doppler. INDICATION Murmur 2D DIMENSIONS Left Atrium (2D)2.9 (1.6-4.0cm)IVSd0.8 (0.7-1.1cm) LVDd4.4 (3.9-5.9cm)PWd1.1 (0.7-1.1cm) LVDs2.8 (2.5-4.0cm)FS (%) 37.7 % LVEF (%)68.0 (>50%) M-Mode DIMENSIONS Aortic Root2.10 (2.2-3.7cm)Aortic Cusp Exc.1.40 (1.5-2.0cm) Aortic Valve AoV Peak [id number]/Maria A Peak GR.10mmHg Mitral Valve E/A ratio0.0 TDI E/Lateral E'0.0E/Medial E'0.0 Tricuspid Valve TR Peak [id number]/sRAP [id number] Peak Gr.17mmHg [id number] LEFT VENTRICLE The left ventricle is normal size. The left ventricular function is normal. The left ventricular ejection fraction is within the normal range.Ej.Fr: 68%. RIGHT VENTRICLE The right ventricle is normal size. The right ventricular systolic function is normal. ATRIA The left atrium size is normal. The right atrium size is normal. AORTIC VALVE The aortic valve is normal in structure. MITRAL VALVE The mitral valve is normal in structure. Mitral regurgitation is trace. TRICUSPID VALVE The tricuspid valve is normal in structure. PERICARDIAL EFFUSION There is no pericardial effusion. <Conclusion> The left ventricle is normal size. The left ventricular function is normal. The left ventricular ejection fraction is within the normal range.Ej.Fr: 68%. The right ventricle is normal size. The right ventricular systolic function is normal. The left atrium size is normal. The right atrium size is normal. The aortic valve is normal in structure. The mitral valve is normal in structure. Mitral regurgitation is trace. The tricuspid valve is normal in structure. There is no pericardial effusion.
[2018-12-28] MEDS ORDERED: Magnesium Oxide 400 mg Tab UD PO ONE (16:35)
--- NOTE | 2018-12-28 17:29 | CP.PCM.CON ---
History of Present Illness - History of Present Illness History of Present Illness: 18 year old female with PMH of pyelonephritis, history of meningitis [place] [facility] [place] having vomiting and fevers at home. She was discharged from the hospital a few days ago diagnosed with left sided pyelonephiritis and was discharged on Cephalexin for E. coli in the urine. She denies headache or dizziness, no chest pain, no SOB, no cough or rhinorrhea, no sore throat, no abdominal pain, no diarrhea. Infectious Diseases consult is requested to further evaluate and manage. 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) - RENAL Hx Pyelonephritis: Yes Hx Renal Failure: No Other/Comment: Blood in urine - ENDOCRINE/METABOLIC Hx Endocrine Disorders: No - HEMATOLOGICAL/ONCOLOGICAL Hx Blood Disorders: No - INTEGUMENTARY Hx Eczema: Yes - MUSCULOSKELETAL/RHEUMATOLOGICAL Hx Musculoskeletal Disorders: No - GASTROINTESTINAL Hx Gastrointestinal Disorders: No - GENITOURINARY/GYNECOLOGICAL Hx Urinary Tract Infection: Yes (recurrent) - PSYCHIATRIC Hx Psychophysiologic Disorder: Yes Hx Depression: No Hx Emotional Abuse: No Hx Physical Abuse: No Hx Substance Use: Yes (cannibus social) - SURGICAL HISTORY Hx Tonsillectomy: Yes Other/Comment: adenoidrctomy; tonsillectomy. Ear tubes - ANESTHESIA Hx Anesthesia: Yes Hx Anesthesia Reactions: No Hx Malignant Hyperthermia: No Meds Allergies/Adverse Reactions: Allergies Allergy/AdvReac Type Severity Reaction Status Date / Time ORANGE Allergy Mild RASH Verified 12/27/18 20:16 - Medications Medications: Current Medications Acetaminophen (Tylenol 325mg Tab) 650 mg PO Q4H PRN PRN Reason: Fever >100.4 F Last Admin: 12/28/18 08:04 Dose: 650 mg Acetaminophen (Tylenol 325mg Tab) 650 mg PO Q4H PRN PRN Reason: Headache Sodium Chloride (Sodium Chloride 0.9%) 1,000 mls @ 150 mls/hr IV .Q6H40M HUSSEIN Meropenem/Sodium Chloride (Merrem Iv 500 Mg/Ns 50 Ml) 500 mg in 50 mls @ 100 mls/hr IVPB Q8 [facility]; Protocol Stop: 12/28/18 14:29 Last Admin: 12/28/18 05:14 Dose: 100 mls/hr Ondansetron HCl (Zofran Inj) 4 mg IVP Q4H PRN PRN Reason: Nausea/Vomiting Pantoprazole Sodium (Protonix Ec Tab) 40 mg PO 0600 [facility] Last Admin: 12/28/18 05:14 Dose: 40 mg Physical Exam - Constitutional Appears: Chronically Ill - Head Exam Head Exam: NORMAL INSPECTION - Respiratory Exam Respiratory Exam: Decreased Breath Sounds - Cardiovascular Exam Cardiovascular Exam: +S1, +S2 - GI/Abdominal Exam GI & Abdominal Exam: Soft - Back Exam Back exam: absent: CVA tenderness (L), CVA tenderness (R) Results - Vital Signs Recent Vital Signs: Last Vital Signs Temp 98.5 F 12/28/18 09:04 Pulse 77 12/28/18 08:37 Resp 16 12/28/18 08:37 BP 108/59 L 12/28/18 08:37 Pulse Ox 97 12/28/18 08:37 - Labs Result Diagrams: 12/28/18 07:20 12/28/18 07:20 Labs: Laboratory Results - last 24 hr 12/27/18 12/27/18 12/27/18 21:33 21:33 21:41 WBC 6.9 RBC 4.69 Hgb 13.4 Hct 38.4 MCV 81.9 MCH 28.6 MCHC 34.9 RDW 13.6 Plt Count 293 MPV 9.9 Neut % (Auto) 70.1 H Lymph % (Auto) 14.9 L [place] % (Auto) 14.6 H Eos % (Auto) 0.1 L Baso % (Auto) 0.3 Lymph # (Auto) 1.0 L [place] # (Auto) 1.0 H Eos # (Auto) 0.0 Baso # (Auto) 0.02 Absolute Neuts (auto) 4.84 pO2 27 L VBG pH 7.44 H VBG pCO2 38.0 L VBG HCO3 25.8 VBG Total CO2 27.0 VBG O2 Sat (Calc) 61.1 VBG Base Excess 1.7 VBG Potassium 3.3 L Glucose 90 Lactate 1.3 FiO2 21.0 Sodium 139 136.0 Potassium 3.4 L Chloride 102 102.0 Carbon Dioxide 26 Anion Gap 15 BUN 6 L Creatinine 0.6 L Est GFR ( Amer) > 60 Est GFR (Non-Af Amer) > 60 Random Glucose 84 Calcium 9.4 Magnesium Total Bilirubin 0.3 AST 30 ALT 21 Alkaline Phosphatase 95 Total Protein 7.6 Albumin 4.3 Globulin 3.4 Albumin/Globulin Ratio 1.3 Venous Blood Potassium 3.3 L Urine Color Urine Appearance Urine pH Ur Specific [place] Urine Protein Urine Glucose (UA) Urine Ketones Urine Blood Urine Nitrate Urine Bilirubin Urine Urobilinogen Ur Leukocyte Esterase Urine RBC Urine WBC Ur Epithelial Cells Urine Bacteria Influenza Typ A,B (EIA) 12/27/18 12/27/18 12/28/18 22:02 22:46 07:00 WBC RBC Hgb Hct MCV MCH MCHC RDW Plt Count MPV Neut % (Auto) Lymph % (Auto) [place] % (Auto) Eos % (Auto) Baso % (Auto) Lymph # (Auto) [place] # (Auto) Eos # (Auto) Baso # (Auto) Absolute Neuts (auto) pO2 VBG pH VBG pCO2 VBG HCO3 VBG Total CO2 VBG O2 Sat (Calc) VBG Base Excess VBG Potassium Glucose Lactate FiO2 Sodium Potassium Chloride Carbon Dioxide Anion Gap BUN Creatinine Est GFR ( Amer) Est GFR (Non-Af Amer) Random Glucose Calcium Magnesium 1.6 L Total Bilirubin AST ALT Alkaline Phosphatase Total Protein Albumin Globulin Albumin/Globulin Ratio Venous Blood Potassium Urine Color Yellow Urine Appearance Sl cloudy Urine pH 6.0 Ur Specific [place] >= 1.030 Urine Protein 30 H Urine Glucose (UA) Negative Urine Ketones 40 H Urine Blood Large H Urine Nitrate Negative Urine Bilirubin Negative Urine Urobilinogen 0.2 Ur Leukocyte Esterase Trace H Urine RBC 10 - 15 H Urine WBC 2 - 5 Ur Epithelial Cells 1 - 3 Urine Bacteria Few Influenza Typ A,B (EIA) Negative for flu a/b 12/28/18 12/28/18 07:20 07:20 WBC 7.0 RBC 4.43 Hgb 12.5 Hct 36.3 MCV 81.9 MCH 28.2 MCHC 34.4 RDW 13.5 Plt Count 257 MPV 9.8 Neut % (Auto) Lymph % (Auto) [place] % (Auto) Eos % (Auto) Baso % (Auto) Lymph # (Auto) [place] # (Auto) Eos # (Auto) Baso # (Auto) Absolute Neuts (auto) pO2 VBG pH VBG pCO2 VBG HCO3 VBG Total CO2 VBG O2 Sat (Calc) VBG Base Excess VBG Potassium Glucose Lactate FiO2 Sodium 138 Potassium 3.2 L Chloride 105 Carbon Dioxide 25 Anion Gap 11 BUN 6 L Creatinine 0.6 L Est GFR ( Amer) > 60 Est GFR (Non-Af Amer) > 60 Random Glucose 91 Calcium 8.4 Magnesium Total Bilirubin AST ALT Alkaline Phosphatase Total Protein Albumin Globulin Albumin/Globulin Ratio Venous Blood Potassium Urine Color Urine Appearance Urine pH Ur Specific [place] Urine Protein Urine Glucose (UA) Urine Ketones Urine Blood Urine Nitrate Urine Bilirubin Urine Urobilinogen Ur Leukocyte Esterase Urine RBC Urine WBC Ur Epithelial Cells Urine Bacteria Influenza Typ A,B (EIA) Assessment & Plan - Assessment and Plan (Free Text) Plan: Assessment consider left sided pyelonephritis pyelonephritis history of meningitis Plan Started Merrem pending blood and urine cx will monitor for fevers - if she has fevers, will need repeat imaging of the kidneys
[2018-12-29] MEDS: Pantoprazole 40 mg EC Tab PO SCH (05:29)
[2018-12-29 08:01] LABS: HEMOGLOBIN 12.4 g/dL (12.0-16.0); MEAN CELL VOLUME 82.2 fl (80.0-105.0); MEAN CORPUSCULAR HEMOGLOBIN 28.2 pg (25.0-35.0); MEAN CORPUSCULAR HGB CONC 34.3 g/dl (31.0-37.0); MEAN PLATELET VOLUME 9.8 fl (7.0-11.0); RBC 4.39 10^6/uL (3.5-6.1); RED CELL DISTRIBUTION WIDTH 13.8 % (11.5-14.5); WHITE BLOOD COUNT 6.7 10^3/uL (4.5-11.0)
[2018-12-29 08:14] LABS: ALB/GLOB RATIO 1.1 (1.1-1.8); ALBUMIN 3.1 g/dL (3.0-4.8); ALT/SGPT 35 U/L (7-56); AST/SGOT 33 U/L (14-36); BLOOD UREA NITROGEN 6 mg/dL (7-21); CALCIUM 8.2 mg/dL (8.4-10.5); GFR NON-AFRICAN AMERICAN > 60
[2018-12-29] MEDS ORDERED: cefTRIAXone 1 gm 1 GM/100 ML BAG IVPB SCH (10:00)
[2018-12-29] MEDS: MEROPENEM 500 MG in NS 500 MG/50 ML BAG IVPB SCH ×2 (11:05→21:50)
--- NOTE | 2018-12-29 16:40 | CP.PCM.PN ---
<Ant Daly - Last Filed: 12/29/18 16:36> Subjective - Date & Time of Evaluation Date of Evaluation: 12/29/18 Time of Evaluation: 08:36 - Subjective Subjective: PGY-1 Medicine progress note for Dr. Hines Patient seen and examined at bedside. Patient had a Tmax of 101.5 in the past 24 hours. She denies having any chills, shortness of breath, chest pain, abdominal pain, or any other complaints at this time. Objective - Vital Signs/Intake and Output Vital Signs (last 24 hours): Temp Pulse Resp BP Pulse Ox 98.1 F 69 18 107/64 100 12/29/18 14:00 12/29/18 14:00 12/29/18 14:00 12/29/18 14:00 12/29/18 14:00 Intake and Output: 12/29/18 12/29/18 06:59 18:59 Intake Total 1080 480 Balance 1080 480 - Medications Medications: Current Medications Acetaminophen (Tylenol 325mg Tab) 650 mg PO Q4H PRN PRN Reason: Fever >100.4 F Last Admin: 12/28/18 16:04 Dose: 650 mg Acetaminophen (Tylenol 325mg Tab) 650 mg PO Q4H PRN PRN Reason: Headache Last Admin: 12/29/18 05:28 Dose: 650 mg Sodium Chloride (Sodium Chloride 0.9%) 1,000 mls @ 100 mls/hr IV .Q10H HUSSEIN Meropenem/Sodium Chloride (Merrem Iv 500 Mg/Ns 50 Ml) 500 mg in 50 mls @ 100 mls/hr IVPB Q12 [facility]USSEIN; Protocol Stop: 01/05/19 10:01 Last Admin: 12/29/18 11:05 Dose: 100 mls/hr Ketorolac Tromethamine (Toradol) 30 mg IVP Q6 PRN PRN Reason: Pain, moderate (4-7) Last Admin: 12/28/18 17:08 Dose: 30 mg Ondansetron HCl (Zofran Inj) 4 mg IVP Q4H PRN PRN Reason: Nausea/Vomiting Pantoprazole Sodium (Protonix Ec Tab) 40 mg PO 0600 HUSSEIN Last Admin: 12/29/18 05:29 Dose: 40 mg - Labs Labs: 12/29/18 07:40 12/29/18 07:40 - Additional Findings Additional findings: - Constitutional Appears: No Acute Distress - Head Exam Head Exam: ATRAUMATIC, NORMAL INSPECTION, NORMOCEPHALIC - Eye Exam Eye Exam: EOMI, Normal appearance - ENT Exam ENT Exam: Mucous Membranes Moist - Respiratory Exam Respiratory Exam: Clear to Auscultation Bilateral, NORMAL BREATHING PATTERN. absent: Rales, Rhonchi, Wheezes - Cardiovascular Exam Cardiovascular Exam: REGULAR RHYTHM, +S1, +S2, Systolic Murmur - GI/Abdominal Exam GI & Abdominal Exam: Normal Bowel Sounds, Soft. absent: Tenderness - Extremities Exam Extremities exam: Positive for: normal capillary refill, normal inspection, pedal pulses present. Negative for: calf tenderness - Back Exam Back exam: Absent: (CVA tenderness (L), CVA tenderness (R)) - Neurological Exam Neurological exam: Alert, CN II-XII Intact, Normal Gait, Oriented x3, Reflexes Normal - Psychiatric Exam Psychiatric exam: Normal Affect, Normal Mood - Skin Skin Exam: Dry, Intact, Normal Color, Warm Assessment and Plan - Assessment and Plan (Free Text) Assessment: Patient is a 18 year old female with past medical history of pyelonephritis who is admitted for pyelonephritis after failing outpatient antibiotic therapy. Plan: Pyelonephritis - CT of abdomen and pelvis showed characteristics of left kidney consistent with acute pyelonephritis and enlarged right adnexa. - CXR: no consolidation or infiltrate - UA +blood, trace LE, 2-5 wbc, cloudy - Failed outpatient antibiotic therapy with PO ciprofloxacin - Merrem 500mg IVPB q8 (Started on 12/27) - Given ceftriaxone in ED - ID consulted, Dr. Carter - Will repeat imaging of the kidneys if patient still has fevers - Tylenol 650mg PO q4 prn for fevers - NS @ 100cc/hr - Zofran prn for nausea/vomiting - Blood cultures: no growth to date Hx of ovarian cyst - Transvaginal ultrasound showed a right ovarian septated cyst measuring 2.88 x 2.1 x 2.85 cm Possible Heart Murmur - Echo: Normal LV size and function. LVEF: 68%. GI ppx: ptx DVT ppx: scd Case was discussed and reviewed with attending physician, Dr. Flora Daly, PGY-1 <Ganesh Hines - Last Filed: 12/29/18 19:56> Objective - Vital Signs/Intake and Output Vital Signs (last 24 hours): Temp Pulse Resp BP Pulse Ox 98.1 F 69 18 107/64 100 12/29/18 14:00 12/29/18 14:00 12/29/18 14:00 12/29/18 14:00 12/29/18 14:00 Intake and Output: 12/29/18 12/30/18 18:59 06:59 Intake Total 480 Balance 480 - Medications Medications: Current Medications Acetaminophen (Tylenol 325mg Tab) 650 mg PO Q4H PRN PRN Reason: Fever >100.4 F Last Admin: 12/28/18 16:04 Dose: 650 mg Acetaminophen (Tylenol 325mg Tab) 650 mg PO Q4H PRN PRN Reason: Headache Last Admin: 12/29/18 05:28 Dose: 650 mg Sodium Chloride (Sodium Chloride 0.9%) 1,000 mls @ 100 mls/hr IV .Q10H HUSSEIN Meropenem/Sodium Chloride (Merrem Iv 500 Mg/Ns 50 Ml) 500 mg in 50 mls @ 100 mls/hr IVPB Q12 [facility]USSEIN; Protocol Stop: 01/05/19 10:01 Last Admin: 12/29/18 11:05 Dose: 100 mls/hr Ketorolac Tromethamine (Toradol) 30 mg IVP Q6 PRN PRN Reason: Pain, moderate (4-7) Last Admin: 12/28/18 17:08 Dose: 30 mg Ondansetron HCl (Zofran Inj) 4 mg IVP Q4H PRN PRN Reason: Nausea/Vomiting Pantoprazole Sodium (Protonix Ec Tab) 40 mg PO 0600 HUSSEIN Last Admin: 12/29/18 05:29 Dose: 40 mg - Labs Labs: 12/29/18 07:40 12/29/18 07:40 Attending/Attestation - Attestation I have personally seen and examined this patient.: Yes I have fully participated in the care of the patient.: Yes I have reviewed all pertinent clinical information, including history, physical exam and plan: Yes
[2018-12-29] MEDS: Sodium Chloride 0.9% 1,000 ML IV SCH (21:50)
[2018-12-30] MEDS: Pantoprazole 40 mg EC Tab PO SCH ×2 (06:46→07:54)
--- NOTE | 2018-12-30 07:26 | CP.PCM.PN ---
Subjective - Date & Time of Evaluation Date of Evaluation: 12/30/18 Time of Evaluation: 07:26 Objective - Vital Signs/Intake and Output Vital Signs (last 24 hours): Temp Pulse Resp BP Pulse Ox 98.4 F 72 18 122/73 98 12/29/18 21:55 12/29/18 21:55 12/29/18 21:55 12/29/18 21:55 12/29/18 21:55 Intake and Output: 12/30/18 12/30/18 06:59 18:59 Intake Total 840 Balance 840 - Medications Medications: Current Medications Acetaminophen (Tylenol 325mg Tab) 650 mg PO Q4H PRN PRN Reason: Fever >100.4 F Last Admin: 12/28/18 16:04 Dose: 650 mg Acetaminophen (Tylenol 325mg Tab) 650 mg PO Q4H PRN PRN Reason: Headache Last Admin: 12/29/18 05:28 Dose: 650 mg Sodium Chloride (Sodium Chloride 0.9%) 1,000 mls @ 100 mls/hr IV .Q10H HUSSEIN Last Admin: 12/29/18 21:50 Dose: 100 mls/hr Meropenem/Sodium Chloride (Merrem Iv 500 Mg/Ns 50 Ml) 500 mg in 50 mls @ 100 mls/hr IVPB Q12 HUSSEIN; Protocol Stop: 01/05/19 10:01 Last Admin: 12/29/18 21:50 Dose: 100 mls/hr Ketorolac Tromethamine (Toradol) 30 mg IVP Q6 PRN PRN Reason: Pain, moderate (4-7) Last Admin: 12/28/18 17:08 Dose: 30 mg Ondansetron HCl (Zofran Inj) 4 mg IVP Q4H PRN PRN Reason: Nausea/Vomiting Pantoprazole Sodium (Protonix Ec Tab) 40 mg PO 0600 HUSSEIN Last Admin: 12/30/18 06:46 Dose: 40 mg - Labs Labs: 12/29/18 07:40 12/29/18 07:40
[2018-12-30 07:45] LABS: BASO # 0.02 K/mm3 (0.0-2.0); BASO % 0.3 % (0.0-3.0); EOS # 0.4 (0.0-0.7); EOS % 6.3 % (1.5-5.0); HEMOGLOBIN 12.7 g/dL (12.0-16.0); LYMPH # 2.2 (1.2-3.4); LYMPH % 33.1 % (22.0-35.0); MEAN CELL VOLUME 81.4 fl (80.0-105.0); MEAN CORPUSCULAR HEMOGLOBIN 28.1 pg (25.0-35.0); MEAN CORPUSCULAR HGB CONC 34.5 g/dl (31.0-37.0); MEAN PLATELET VOLUME 9.7 fl (7.0-11.0); MONO # 0.6 (0.1-0.6); RBC 4.52 10^6/uL (3.5-6.1); RED CELL DISTRIBUTION WIDTH 13.9 % (11.5-14.5); WHITE BLOOD COUNT 6.6 10^3/uL (4.5-11.0)
[2018-12-30 08:03] LABS: ALB/GLOB RATIO 1.2 (1.1-1.8); ALBUMIN 3.3 g/dL (3.0-4.8); ALT/SGPT 42 U/L (7-56); AST/SGOT 38 U/L (14-36); BLOOD UREA NITROGEN 5 mg/dL (7-21); CALCIUM 8.4 mg/dL (8.4-10.5); GFR NON-AFRICAN AMERICAN > 60
[2018-12-30] MEDS ORDERED: Potassium Chloride 20 mEq ER Tab PO ONE ×2 (08:31)
[2018-12-30] MEDS ORDERED: Magnesium Sulfate 1 gm in D5W 1 GM/100 ML BAG IVPB ONE (08:31)
[2018-12-30] MEDS ORDERED: Magnesium Oxide 400 mg Tab UD PO ONE (08:31)
[2018-12-30] MEDS: MEROPENEM 500 MG in NS 500 MG/50 ML BAG IVPB SCH (09:38)
[2018-12-30] MEDS: Sodium Chloride 0.9% 1,000 ML IV SCH (09:38)
[2018-12-30 10:57] LABS: BARBITURATES, UR NEGATIVE (NEGATIVE); BENZODIAZEPINES, UR NEGATIVE (NEGATIVE); OPIATES, UR NEGATIVE (NEGATIVE); PHENCYCLIDINE, UR NEGATIVE (NEGATIVE)
--- NOTE | 2018-12-30 13:10 | CP.PCM.DIS ---
Provider - Provider Date of Admission: 12/27/18 22:43 Attending physician: Hardy Ly MD Primary care physician: Nargis Fuentes MD Consults: 12/27/18 23:31 Consult [Physician Consult] Routine Comment: Consulting Provider: Reymundo Carter Consulting Physician: Reymundo Carter Reason for Consult: pyelonephritis, still febrile Time Spent in preparation of Discharge (in minutes): 45 Diagnosis - Discharge Diagnosis (1) Failure of outpatient treatment Status: Resolved (2) Fever Status: Resolved (3) Pyelonephritis Status: Acute (4) Urinary tract infection Status: Acute Priority: Medium Hospital Course - Lab Results Lab Results: Micro Results 12/27/18 21:50 Blood Blood Culture - Preliminary NO GROWTH AFTER 48 HOURS 12/27/18 21:33 Blood Blood Culture - Preliminary NO GROWTH AFTER 48 HOURS 12/27/18 22:46 Urine Random Urine Culture - Final No Growth (<1,000 CFU/ML) Most Recent Lab Values WBC 6.6 10^3/uL (4.5-11.0) 12/30/18 07:00 RBC 4.52 10^6/uL (3.5-6.1) 12/30/18 07:00 Hgb 12.7 g/dL (12.0-16.0) 12/30/18 07:00 Hct 36.8 % (36.0-48.0) 12/30/18 07:00 MCV 81.4 fl (80.0-105.0) 12/30/18 07:00 MCH 28.1 pg (25.0-35.0) 12/30/18 07:00 MCHC 34.5 g/dl (31.0-37.0) 12/30/18 07:00 RDW 13.9 % (11.5-14.5) 12/30/18 07:00 Plt Count 278 10^3/uL (120.0-450.0) 12/30/18 07:00 MPV 9.7 fl (7.0-11.0) 12/30/18 07:00 Neut % (Auto) 51.3 % (50.0-68.0) 12/30/18 07:00 Lymph % (Auto) 33.1 % (22.0-35.0) 12/30/18 07:00 [place] % (Auto) 9.0 % (1.0-6.0) H 12/30/18 07:00 Eos % (Auto) 6.3 % (1.5-5.0) H 12/30/18 07:00 Baso % (Auto) 0.3 % (0.0-3.0) 12/30/18 07:00 Lymph # (Auto) 2.2 (1.2-3.4) 12/30/18 07:00 [place] # (Auto) 0.6 (0.1-0.6) 12/30/18 07:00 Eos # (Auto) 0.4 (0.0-0.7) 12/30/18 07:00 Baso # (Auto) 0.02 K/mm3 (0.0-2.0) 12/30/18 07:00 Absolute Neuts (auto) 3.37 (1.4-6.5) 12/30/18 07:00 pO2 27 mm/Hg (30-55) L 12/27/18 21:41 VBG pH 7.44 (7.32-7.43) H 12/27/18 21:41 VBG pCO2 38.0 (40-60) L 12/27/18 21:41 VBG HCO3 25.8 mmol/l (21-28) 12/27/18 21:41 VBG Total CO2 27.0 mmol.L (22-28) 12/27/18 21:41 VBG O2 Sat (Calc) 61.1 % (40-65) 12/27/18 21:41 VBG Base Excess 1.7 mmol/L (0.0-2.0) 12/27/18 21:41 VBG Potassium 3.3 mmol/L (3.6-5.2) L 12/27/18 21:41 Sodium 136.0 mmol/L (132-148) 12/27/18 21:41 Chloride 102.0 mmol/L (98-107) 12/27/18 21:41 Glucose 90 mg/dl (65-105) 12/27/18 21:41 Lactate 1.3 mmol/L (0.7-2.1) 12/27/18 21:41 FiO2 21.0 % 12/27/18 21:41 Sodium 139 mmol/L (132-148) 12/30/18 07:00 Potassium 3.1 mmol/L (3.6-5.0) L 12/30/18 07:00 Chloride 106 mmol/L (98-107) 12/30/18 07:00 Carbon Dioxide 28 mmol/L (21-33) 12/30/18 07:00 Anion Gap 8 (10-20) L 12/30/18 07:00 BUN 5 mg/dL (7-21) L 12/30/18 07:00 Creatinine 0.5 mg/dl (0.7-1.2) L 12/30/18 07:00 Est GFR ( Amer) > 60 12/30/18 07:00 Est GFR (Non-Af Amer) > 60 12/30/18 07:00 Random Glucose 89 mg/dL (70-110) 12/30/18 07:00 Calcium 8.4 mg/dL (8.4-10.5) 12/30/18 07:00 Magnesium 1.7 mg/dL (1.7-2.2) 12/30/18 07:00 Total Bilirubin 0.1 mg/dL (0.2-1.3) L 12/30/18 07:00 AST 38 U/L (14-36) H 12/30/18 07:00 ALT 42 U/L (7-56) 12/30/18 07:00 Alkaline Phosphatase 67 U/L (38-126) 12/30/18 07:00 Total Protein 6.2 g/dL (5.8-8.3) 12/30/18 07:00 Albumin 3.3 g/dL (3.0-4.8) 12/30/18 07:00 Globulin 2.8 gm/dL 12/30/18 07:00 Albumin/Globulin Ratio 1.2 (1.1-1.8) 12/30/18 07:00 Venous Blood Potassium 3.3 mmol/L (3.6-5.2) L 12/27/18 21:41 Urine Color Yellow (YELLOW) 12/27/18 22:46 Urine Appearance Sl cloudy (CLEAR) 12/27/18 22:46 Urine pH 6.0 (4.7-8.0) 12/27/18 22:46 Ur Specific [place] >= 1.030 (1.005-1.035) 12/27/18 22:46 Urine Protein 30 mg/dL (<30 mg/dL) H 12/27/18 22:46 Urine Glucose (UA) Negative mg/dL (NEGATIVE) 12/27/18 22:46 Urine Ketones 40 mg/dL (NEGATIVE) H 12/27/18 22:46 Urine Blood Large (NEGATIVE) H 12/27/18 22:46 Urine Nitrate Negative (NEGATIVE) 12/27/18 22:46 Urine Bilirubin Negative (NEGATIVE) 12/27/18 22:46 Urine Urobilinogen 0.2 E.U./dL (<1 E.U./dL) 12/27/18 22:46 Ur Leukocyte Esterase Trace Ryan/uL (NEGATIVE) H 12/27/18 22:46 Urine RBC 10 - 15 /hpf (0-2) H 12/27/18 22:46 Urine WBC 2 - 5 /hpf (0-6) 12/27/18 22:46 Ur Epithelial Cells 1 - 3 /hpf (0-5) 12/27/18 22:46 Urine Bacteria Few /hpf (NONE) 12/27/18 22:46 Urine Opiates Screen Negative (NEGATIVE) 12/28/18 12:19 Urine Methadone Screen Negative (NEGATIVE) 12/28/18 12:19 Ur Barbiturates Screen Negative (NEGATIVE) 12/28/18 12:19 Ur Phencyclidine Scrn Negative (NEGATIVE) 12/28/18 12:19 Ur Amphetamines Screen Negative (NEGATIVE) 12/28/18 12:19 U Benzodiazepines Scrn Negative (NEGATIVE) 12/28/18 12:19 U Oth Cocaine Metabols Negative (NEGATIVE) 12/28/18 12:19 U Cannabinoids Screen Positive (NEGATIVE) H 12/28/18 12:19 Influenza Typ A,B (EIA) Negative for flu a/b (NEGATIVE) 12/27/18 22:02 - Hospital Course Hospital Course: Patient is a 18 year old female with past medical history of pyelonephritis and meningitis who was admitted for evaluation and treatment of back pain, chills, and fatigue. Patient was discharged on 12/26/2018 on PO antibiotics but returned on 12/27 for a fever and left flank pain. During her previous hospital stay, the patient underwent a CT Abdomen and Pelvis with contrast and transvaginal ultrasound. The CT of abdomen and pelvis showed characteristics of left kidney consistent with acute pyelonephritis and enlarged right adnexa. Transvaginal ultrasound showed a right ovarian septated cyst measuring 2.88 x 2.1 x 2.85 cm. Patient was treated with Merrem 500mg IVPB q8. Patient was instructed to continue PO Ciprofloxacin for 7 days once discharged. At this time the patient is medically stable for discharge. Patient understands and appreciates discharge plan. Patient instructed to follow up with primary care physicians and referrals within three to five days from discharge. Furthermore, the patient is instructed to take medications as prescribed and to return to emergency room for evaluation of new or worsening symptoms. Discharge Exam - Head Exam Head Exam: NORMAL INSPECTION - Additional Findings Additional findings: - Constitutional Appears: No Acute Distress - Head Exam Head Exam: ATRAUMATIC, NORMAL INSPECTION, NORMOCEPHALIC - Eye Exam Eye Exam: EOMI, Normal appearance - ENT Exam ENT Exam: Mucous Membranes Moist - Respiratory Exam Respiratory Exam: Clear to Auscultation Bilateral, NORMAL BREATHING PATTERN. absent: Rales, Rhonchi, Wheezes - Cardiovascular Exam Cardiovascular Exam: REGULAR RHYTHM, +S1, +S2, Systolic Murmur - GI/Abdominal Exam GI & Abdominal Exam: Normal Bowel Sounds, Soft. absent: Tenderness - Extremities Exam Extremities exam: Positive for: normal capillary refill, normal inspection, pedal pulses present. Negative for: calf tenderness - Back Exam Back exam: Absent: (CVA tenderness (L), CVA tenderness (R)) - Neurological Exam Neurological exam: Alert, CN II-XII Intact, Normal Gait, Oriented x3, Reflexes Normal - Psychiatric Exam Psychiatric exam: Normal Affect, Normal Mood - Skin Skin Exam: Dry, Intact, Normal Color, Warm Discharge Plan - Discharge Medications Prescriptions: Ondansetron ODT [Zofran ODT] 4 mg PO Q4H PRN #12 odt PRN Reason: Nausea/Vomiting - Follow Up Plan Condition: FAIR Disposition: HOME/ ROUTINE Instructions: Nausea and Vomiting, Adult, Marijuana Use and Addiction, Quitting Smoking, Fever, Adult (DC), Flu Vaccine, Kidney Infection (DC) Additional Instructions: 1) Please complete 7 total days of Ciprofloxacin 500 mg every 12 hours. Please drink at least 1.5 liters of water each day while on this medication and avoid performing any strenuous activity and lifting any weight greater than 20 pounds. Also, we recommend eating food before taking this medication. You have this medications at home. 2) Please follow up with your PMD within one week of the day of your discharge. 3) For nausea you can take Zofran every 4 hours, unless otherwise indicated. Referrals: Nargis Fuentes MD [Primary Care Provider] -
[2018-12-30 14:42] VITALS: BP 104/62; PULSE 71; RESP 16; TEMP 98.5; O2SAT 99
--- NOTE | 2018-12-30 15:34 | CP.PCM.PN ---
Subjective - Date & Time of Evaluation Date of Evaluation: 12/29/18 Time of Evaluation: 12:35 - Subjective Subjective: Feeling better, no fevers, no nausea, no flank pain, no diarrhea, no dysuria. Objective - Vital Signs/Intake and Output Vital Signs (last 24 hours): Temp Pulse Resp BP Pulse Ox 101.5 F H 77 18 115/71 97 12/28/18 16:04 12/28/18 14:00 12/28/18 14:00 12/28/18 14:00 12/28/18 14:00 Intake and Output: 12/28/18 12/28/18 06:59 18:59 Intake Total 2200 960 Balance 2200 960 - Medications Medications: Current Medications Acetaminophen (Tylenol 325mg Tab) 650 mg PO Q4H PRN PRN Reason: Fever >100.4 F Last Admin: 12/28/18 16:04 Dose: 650 mg Acetaminophen (Tylenol 325mg Tab) 650 mg PO Q4H PRN PRN Reason: Headache Ceftriaxone Sodium (Rocephin 1 Gram Ivpb) 1 gm in 100 mls @ 100 mls/hr IVPB DAILY HUSSEIN; Protocol Sodium Chloride (Sodium Chloride 0.9%) 1,000 mls @ 100 mls/hr IV .Q10H HUSSEIN Ketorolac Tromethamine (Toradol) 30 mg IVP Q6 PRN PRN Reason: Pain, moderate (4-7) Last Admin: 12/28/18 17:08 Dose: 30 mg Ondansetron HCl (Zofran Inj) 4 mg IVP Q4H PRN PRN Reason: Nausea/Vomiting Pantoprazole Sodium (Protonix Ec Tab) 40 mg PO 0600 HUSSEIN Last Admin: 12/28/18 05:14 Dose: 40 mg - Labs Labs: 12/28/18 07:20 12/28/18 07:20 - Constitutional Appears: Chronically Ill - Head Exam Head Exam: NORMAL INSPECTION - Respiratory Exam Respiratory Exam: absent: Rales, Rhonchi - Cardiovascular Exam Cardiovascular Exam: +S1, +S2 - GI/Abdominal Exam GI & Abdominal Exam: Soft. absent: Tenderness - Back Exam Back Exam: absent: CVA tenderness (L), CVA tenderness (R) Assessment and Plan - Assessment and Plan (Free Text) Plan: Assessment consider left sided pyelonephritis with E. coli pyelonephritis history of meningitis Plan on Merrem day 3 - can switch to PO Ciprofloxacin or Keflex when ready to be d ischarged discussed with Dr. Miranda
== END 2018-12-30 17:12 | disposition home or self-care (01) | DRG 463 ==
LOC: ED 19:06 → ERH 22:43 → 5RSO 12-28 01:02
PROVIDERS: ADMIT Internal Medicine; ATTEND Internal Medicine
DX: N10 Acute pyelonephritis (principal); R50.9 Fever, unspecified; R11.2 Nausea with vomiting, unspecified; Z87.440 Personal history of urinary (tract) infections; Z86.61 Personal history of infections of the central nervous system; Z80.8 Family history of malignant neoplasm of other organs or systems